=== PATIENT | female | born 1990 | race Caucasian/White ===

== ENCOUNTER → 2021-03-27 00:33 | Outpatient (CLI) | payer BC, SELFPAY ==
[2021-03-27 17:06] LABS: SARS-CoV-2 RNA PCR Negative
== END ==
PROVIDERS: Visit Provider Student in an Organized Health Care Education/Training Program
DX: Z01.812 Encounter for preprocedural laboratory examination (principal); Z20.822 Contact with and (suspected) exposure to COVID-19
CPT/HCPCS: C9803; U0003; U0005

== ENCOUNTER 2021-03-27 13:27 | Outpatient (CLI) | payer BC, SELFPAY ==
[2021-03-27 08:29] LABS: Hematocrit 40.6 % (37.0-47.0); Hemoglobin 12.9 g/dL (12.0-15.0); Mean Corpuscular HGB Conc 31.8 g/dl (32-36); Mean Corpuscular Hemoglobin 28.2 pg (26-34); Mean Corpuscular Volume 88.6 fl (80-100); Mean Platelet Volume 9.6 fl (7.4-10.4); Platelet Count Result 315 k/mm3 (150-375); Red Blood Count 4.58 M/mm3 (4.2-5.4); Red Cell Distribution Width 13.1 % (11.5-14.5); White Blood Count 7.1 K/mm3 (4.5-10.0)
== END 2021-03-27 13:28 ==
LOC: ANHSURGERY 04-24 13:28
PROVIDERS: PCP Family Medicine; Visit Provider Student in an Organized Health Care Education/Training Program
DX: R10.2 Pelvic and perineal pain (principal); Z01.818 Encounter for other preprocedural examination
CPT/HCPCS: 36415; 85027; 86850; 86900; 86901

== ENCOUNTER 2021-03-30 01:44 | Day surgery (SDC) | payer BC, SELFPAY ==
[2021-03-23 12:17] VITALS: BMI 43.6
--- NOTE | 2021-03-29 15:08 | WPDANESEPPF ---
Anes - Initial Pre Proc Eval Procedure: Operation Date: 03/30/21 14:30 Proposed Procedures p Diagnostic Laparoscopy, Hysteroscopy, Dilatation and Curettage,Chromotubation - Braulio Zhao MD Date/Time: 03/29/21 15:08 Surgeon: Braulio Zhao MD Pre Op Diagnosis: Pelvic pain Patient Data Age: 30 Gender: F Height: 1.65 m Weight: 119 kg Allergies Allergy/AdvReac Type Severity Reaction Status Date / Time adhesive tape Allergy Severe Rash Verified 03/23/21 11:45 Penicillins Allergy Unknown Unknown Verified 03/23/21 11:45 Home Medications Medication Instructions Recorded Confirmed Type alprazolam 0.5 mg PO PRN PRN 03/23/21 03/23/21 History aripiprazole 2 mg PO HS 03/23/21 03/23/21 History clonidine HCl 0.1 mg PO HS 03/23/21 03/23/21 History diclofenac sodium 50 mg PO DAILY 03/23/21 03/23/21 History montelukast 10 mg PO DAILY 03/23/21 03/23/21 History sertraline 100 mg PO HS 03/23/21 03/23/21 History tramadol 50 mg PO PRN PRN 03/23/21 03/23/21 History trazodone 100 mg PO HS 03/23/21 03/23/21 History Patient hx anesthesia problems: none Family hx anesthesia problems: none [facility] Past Medical History Medical History (Updated 03/30/21 @ 07:52 by Braulio Zhao MD) Anxiety Morbid obesity with BMI of 40.0-44.9, adult PTSD (post-traumatic stress disorder) Family History Family History (Updated 01/10/16 @ 11:11 by DOCTOR UNKNOWN) Mother Family history of mental disorder Depression Family history of bipolar disorder Hypertension Other Family history of psoriasis Social History Social History Smoking packs per day: 1 Smoking cigarettes per day: 20.0 Years smoked: 10 Smoking pack-years: 10.00 Smoking status: Former smoker Tobacco type: cigarettes Alcohol intake: never Last use: 2014 Spiritual care concerns: No Anes - Eval Final PreProcedure Day of Procedure 03/29/21 15:08 Patient weight: morbidly obese Heart: regular rate and rhythm Lungs: clear to auscultation and normal air movement Airway: Mallampati scale class II Neurological: alert and oriented Last oral intake: >/= 8 hours ASA classification: III Emergent: no Anesthetic plan: proceed Anesthesia type and monitoring: general ETT Informed Consent: The patient's anesthetic plan and its attendant risks and benefits were discussed with the patient/family/POA. Questions were solicited and answers provided to the satisfaction of the patient/family/POA.
--- NOTE | 2021-03-29 15:35 | PM.IMHP ---
H&P: HPI History of Present Illness Date/Time: 03/29/21 15:35 Chief Complaint: pelvic pain infertility Narrative: 30 yo G0 who presents for diagnostic laparoscopy, chromopertubation, hysteroscopy and D&C for pelvic pain and infertility. Pt has had chronic pelvic pain refractory to medical management. Discussed laparoscopy to evaluate for endometriosis. Pt and her partner have been trying to conceive without success. Will plan for chromopertubation at the time of laparoscopy to evaluate tubal patentcy and hysteroscopy to evaluate the endometrial cavity. Review of Systems Cardiovascular: Cardiovascular: Denies chest pain, Denies leg edema, Denies palpitations, Denies dyspnea and Denies dyspnea on exertion Respiratory: Respiratory: Denies cough, Denies dyspnea and Denies dyspnea on exertion Gastrointestinal: Gastrointestinal: Denies abdominal pain, Denies constipation, Denies diarrhea, Denies nausea and Denies vomiting Genitourinary: Genitourinary: Denies hematuria, Denies urinary frequency, Denies dysuria, Denies pelvic pain, Denies urinary incontinence and Denies vaginal discharge Neurologic: Reports system reviewed and no additional complaints, except as documented Psychiatric: Psychiatric: Reports no additional psychiatric complaints Endocrine: Endocrine: Denies palpitations [facility] Past Medical History Medical History (Updated 03/30/21 @ 07:52 by Braulio Zhao MD) Anxiety Morbid obesity with BMI of 40.0-44.9, adult PTSD (post-traumatic stress disorder) Family History Family History (Updated 01/10/16 @ 11:11 by DOCTOR UNKNOWN) Mother Family history of mental disorder Depression Family history of bipolar disorder Hypertension Other Family history of psoriasis Social History Social History Smoking packs per day: 1 Smoking cigarettes per day: 20.0 Years smoked: 10 Smoking pack-years: 10.00 Smoking status: Former smoker Tobacco type: cigarettes Alcohol intake: never Last use: 2014 Spiritual care concerns: No Meds Home Medications and Allergies Home Medications Medication Instructions Recorded Confirmed Type alprazolam 0.5 mg PO PRN PRN 03/23/21 03/23/21 History aripiprazole 2 mg PO HS 03/23/21 03/23/21 History clonidine HCl 0.1 mg PO HS 03/23/21 03/23/21 History diclofenac sodium 50 mg PO DAILY 03/23/21 03/23/21 History montelukast 10 mg PO DAILY 03/23/21 03/23/21 History sertraline 100 mg PO HS 03/23/21 03/23/21 History tramadol 50 mg PO PRN PRN 03/23/21 03/23/21 History trazodone 100 mg PO HS 03/23/21 03/23/21 History Allergies Allergy/AdvReac Type Severity Reaction Status Date / Time adhesive tape Allergy Severe Rash Verified 03/23/21 11:45 Penicillins Allergy Unknown Unknown Verified 03/23/21 11:45 Exam Const: General: no acute distress Eyes: EOM: EOMs intact bilaterally Neck: Neck: supple Thyroid: thyroid normal Chest: Breast/axilla inspection: normal inspection of the breasts Breast/axilla palpation: normal palpation of the breasts, normal palpation of the axillae and no axillary lymphadenopathy Resp: Effort & Inspection: normal respiratory effort Auscultation: clear to auscultation bilaterally Cardio: Rate: regular rate Rhythm: regular rhythm GI: Inspection: non-distended GI Palp: Yes Soft to palpation, No Tenderness to palpation present (GI) and No Guarding due to palpation present (GI) Auscultation: normal bowel sounds : General: No bladder normal to palpation External Female Exam: normal external appearance Speculum Exam - Vagina: normal vaginal discharge and No vaginal bleeding Speculum Exam - Cervix: nontender Bimanual exam- vagina & uterus: No bladder normal to palpation and No Cervical tenderness present OB/external & speculum: No vaginal bleeding Skin: General skin exam: normal color and no rashes or lesions noted Neuro: Cognition (Neuro): normal cognition Speech: normal speech Extrem: General: normal to inspection and n
[2021-03-30] VITALS (10 sets, daily range): BP systolic 105–133; BP diastolic 57–92; PULSE 72–112; RESP 14–22; TEMP 36.4–37.2; O2SAT 94–99
--- NOTE | 2021-03-30 07:54 | WPDHPUPDATE1 ---
History and Physical Update Update Date/Time: 03/30/21 07:54 History and Physical has been reviewed, including an updated exam of the patient. There are NO changes in the patient's condition. Risks, benefits, and alternatives have been discussed and questions answered. Patient agrees to proceed with procedure.
[2021-03-30] MEDS: LACTATED RINGERS 1,000 ML 30 ML IV CONT ×2 (13:05→15:48)
[2021-03-30] MEDS: KETOROLAC 15 MG/ML VIAL (*BKC) IV PUSH (13:31)
[2021-03-30] MEDS: ACETAMINOPHEN 500 MG TABLET 1000 MG PO (13:31)
[2021-03-30] MEDS: METHYLENE BLUE 0.5% INJ 10 ML AMPULE XX (15:17)
[2021-03-30] MEDS: LIDO 1%/EPINEPHRINE 1:100,000 50 ML VIAL INFILTRATE (15:18)
--- NOTE | 2021-03-30 15:43 | W.PM.PROC2 ---
Procedure Note - Detailed Date of Procedure 03/30/21 Pre-op Diagnosis Pelvic pain infertility Post-op Diagnosis same (endometriosis) Procedure Performed diagnostic laparoscopy chromopertubation hysteroscopy D&C Surgeon Braulio Zhao MD Anesthesia general Indications pelvic pain infertility Findings endometriosis on the posterior uterine serosa patent fallopian tubes bilaterally unremarkable intrauterine cavity Description of Procedure The patient was taken to the operating room where general endotracheal anesthesia was undertaken and found to be adequate. She was then prepped and draped in the dorsal lithotomy position and placed in adjustable stirrups. A pre-operative team brief and a time out were completed. A red rubber catheter was placed to drain the bladder. Sterile speculum was placed in the vagina and the cervix was identified. The anterior lip of the cervix was grasped with a single tooth tenaculum. An acorn uterine manipulator was placed. A 5 mm skin incision was made in the umbilicus. A 5 mm optical trocar was then placed with direct camera visualization of the abdominal layers during placement. The trocar stylet was removed and the camera was used to verify intra-abdominal placement. CO2 insufflation was then connected and resumed. The pelvis was inspected. The large bowel was noted to be adherent to the left pelvic side wall obstructing view of the left fallopian tube. A suprapubic 5 mm laparoscopic port was placed, in addition to a right lower quadrant 5 mm port in the standard fashion after using local anesthetic. The pelvis was inspected. The bowel adhesions were taken down from the side wall using laparoscopic monopolar scissors. The anterior cul de sac was unremarkable. Upon inspection of the posterior aspect of the uterus, a cluster of dark purple gun powder lesions were noted on the posterior serosa of the uterus at the level of the cervical isthmus. A biopsy of this lesion was taken. Due to the proximity of the uterine artery, electrocautery was spared on the lesion. Attention was then turned to the chromopertubation portion of the procedure. An life enrichment assistant pushed a diluted solution of methylene blue through the acorn cannulla. Spill was directly visualized out the fallopian tubes bilaterally. The solution was then irrigated and removed from the abdomen. The surgical field was thoroughly irrigated using normal saline. All surgical beds were noted to be hemostatic. The laparoscopic portion of the procedure was then complete. The abdomen was relieved of all CO2 gas. All remaining trocars were removed from the abdomen. Sponge, lap and needle counts were correct. All skin incisions were closed with 4-0 Vicryl suture subcuticularly. Attention was then turned to the pelvis to complete the hysteroscopic portion of the procedure. Sterile speculum was placed to visualize the cervix. The uterine manipulator was removed from the uterus. The hysteroscope was introduced and the intrauterine cavity was inspected. Both tubal ostia were identified without occlusion. The endometrial cavity was unremarkable. The hysteroscope was removed. Sharp curettage was performed. Endometrial curettings were collected on [facility] and sent for pathology. The tenaculum was removed from the cervix. Hemostasis of the cervix was noted. The patient was taken out of dorsal lithotomy position. Anesthesia was reversed. The patient was taken to the PACU. Estimated Blood Loss 50 Urine Output 25 Drains No Packing No Pathology yes (peritoneal biopsy, endometrial curettings ) Complications No immediate complications Condition stable Disposition PACU
[2021-03-30] MEDS: fentaNYL CITRATE INJ (*CRX) 100 MCG/2 ML VIAL 25 MCG IV PUSH ×8 (16:03→16:35)
[2021-03-30] MEDS: HYDROcodone/acetaminophen (*CRX) 5-325 MG TABLET 1 TAB PO (17:16)
== END 2021-03-30 17:49 | disposition home or self-care (01) ==
PROVIDERS: PCP Family Medicine; Visit Provider Student in an Organized Health Care Education/Training Program
PROC: 0UDB8ZZ Extraction of Endometrium, Via Natural or Artificial Opening Endoscopic (ICD-10-PCS; CPT 58558; principal; 2021-03-30 14:30)
PROC: 0U5B8ZZ Destruction of Endometrium, Via Natural or Artificial Opening Endoscopic (ICD-10-PCS; CPT 58563; 2021-03-30 14:30)
DX: R10.2 Pelvic and perineal pain (principal); N97.9 Female infertility, unspecified; N80.3 Endometriosis of pelvic peritoneum; N73.6 Female pelvic peritoneal adhesions (postinfective); F43.10 Post-traumatic stress disorder, unspecified; F41.9 Anxiety disorder, unspecified; E66.01 Morbid (severe) obesity due to excess calories; Z68.41 Body mass index [BMI] 40.0-44.9, adult; Z87.891 Personal history of nicotine dependence
CPT/HCPCS: 58558; 49321; 88305; A9270; J0330; J1100; J1885; J2250; J2405; J2704; J3010; J7030; J7120; Q9968

== ENCOUNTER 2021-06-11 09:07 | Emergency (ER) | payer BC, SELFPAY ==
--- NOTE | ~2021-06-11 | US_ITS ---
EXAMINATION: US OB <=14 wk fetus w TV DATE: 06/11/2021 10:42 INDICATION: Vaginal spotting TECHNIQUE: Real-time transabdominal and transvaginal obstetric ultrasound. FINDINGS: No prior studies for comparison. The uterus measures 8.6 x 6.1 x 3.4 cm. No intrauterine gestational sac or pole identified. [place] janice is retroverted. Endometrium measures 1 cm. Trace free fluid in the pelvis. Ovaries contain follic ular changes. Normal Doppler signal in both ovaries. Right ovary measures 2.9 x 2.2 x 1.8 cm. Left ov susan measures 2.7 x 1.7 x 2.1 cm. IMPRESSION: 1. Unremarkable pelvic ultrasound. No evidence for intrauterine . If there is a positive pre gnancy test, consider ectopic , very early intrauterine and failed . Bryan mmend follow-up with serial quantitative beta-hCG levels and ultrasound as clinically indicated. Reviewed, dictated and finalized at location A. IMPRESSION: 1. Unremarkable pelvic ultrasound. No evidence for intrauterine . If t here is a positive test, consider ectopic , very early intra uterine and failed . Recommend follow-up with serial quantit ative beta-hCG levels and ultrasound as clinically indicated.
[2021-06-11 09:24] VITALS: BP 142/79; PULSE 91; RESP 18; TEMP 36.6; O2SAT 96
[2021-06-11 09:48] LABS: Basophils Percent Auto 0.4 % (0.2-1.2); Eosinophils Absolute Auto 0.1 K/mm3 (0-0.3); Eosinophils Percent Auto 1.3 % (0-4.4); Hematocrit 40.7 % (37.0-47.0); Hemoglobin 13.2 g/dL (12.0-15.0); Immature Granulocyte Absolute 0.02 K/mm3 (0.00-0.031); Immature Granulocyte Percent A 0.2 % (0-0.5); Lymphocytes Absolute Auto 1.85 K/mm3 (0.9-3.2); Lymphocytes Percent Auto 22.5 % (18.3-44.2); Mean Corpuscular HGB Conc 32.4 g/dl (32-36); Mean Corpuscular Hemoglobin 28.9 pg (26-34); Mean Corpuscular Volume 89.1 fl (80-100); Mean Platelet Volume 9.1 fl (7.4-10.4); Monocytes Absolute Auto 0.5 K/mm3 (0.1-0.6); Monocytes Percent Auto 5.7 % (2.6-8.5); Neutrophils Absolute Auto 5.7 K/mm3 (1.3-6.7); Neutrophils Percent Auto 69.9 % (45.5-73.1); Platelet Count Result 350 k/mm3 (150-375); Red Blood Count 4.57 M/mm3 (4.2-5.4); Red Cell Distribution Width 13.2 % (11.5-14.5); White Blood Count 8.2 K/mm3 (4.5-10.0)
[2021-06-11 10:06] LABS: Beta HCG Quantitative 22.15 mIU/ML
[2021-06-11 10:22] LABS: Alanine Aminotransferase 32 U/L (4-35); Albumin Level 4.5 g/dL (3.5-5.1); Alkaline Phosphatase 67 U/L (38-126); Anion Gap 10 mmol/L (8-16); Aspartate Amino Transferase 32 U/L (14-36); Bilirubin,Total 0.3 mg/dL (0.2-1.3); Blood Urea Nitrogen 8 mg/dL (7-17); Calcium 9.3 mg/dL (8.4-10.2); Carbon Dioxide 21 mmol/L (22-30); Chloride 106 mmol/L (98-107); Estimated CRCL calculation 146 ml/min; Estimated Glomerular Filt Rate > 60; Glucose 112 mg/dL (65-110); Potassium 4.3 mmol/L (3.4-5.0); Sodium 137 mmol/L (137-145)
--- NOTE | 2021-06-11 11:24 | ED.FEMALEGU ---
HPI - Female Genitourinary General Chief complaint: Vaginal Bleeding Stated complaint: vag bleeding/4.5 wks preg Time Seen by Provider: 06/11/21 09:59 Source: patient History of Present Illness HPI Narrative: Patient is G1, P0 approximately 4 and half weeks by LMP used utilized Clomid to help with fertility. She presents with vaginal spotting which she noted today. She has a history of endometriosis and always has some pelvic pain she has not noted any acute change or increase or change in her chronic pain. The blood she describes very scant really only notices it when she was wiping after urination. She is not noted any other vaginal discharge or fluid discharge. She denies any nausea vomiting, dizziness, lightheadedness Related Data Home Medications Medication Instructions Recorded Confirmed alprazolam 0.5 mg PO PRN PRN 03/23/21 03/30/21 aripiprazole 2 mg PO HS 03/23/21 03/30/21 clonidine HCl 0.1 mg PO HS 03/23/21 03/30/21 diclofenac sodium 50 mg PO DAILY 03/23/21 03/30/21 montelukast 10 mg PO DAILY 03/23/21 03/30/21 sertraline 100 mg PO HS 03/23/21 03/30/21 tramadol 50 mg PO PRN PRN 03/23/21 03/30/21 trazodone 100 mg PO HS 03/23/21 03/30/21 Allergies Allergy/AdvReac Type Severity Reaction Status Date / Time adhesive tape Allergy Severe Rash Verified 03/23/21 11:45 Penicillins Allergy Unknown Unknown Verified 03/23/21 11:45 Review of Systems Review of Systems: CONSTITUTIONAL: Denies fever, chills, or sweats. EYES: Denies visual changes, redness, or discharge. ENT: Denies rhinorrhea, congestion, sore throat, or otalgia. CARDIOVASCULAR: Denies chest pain, palpitations, or edema. RESPIRATORY: Denies cough or dyspnea. GASTROINTESTINAL: Denies nausea, vomiting, or diarrhea. GENITOURINARY: Denies dysuria or hematuria. SKIN: Denies rash or itching. MUSCULOSKELETAL: Denies back pain, joint pain, or myalgia. NEUROLOGIC: Denies headache, numbness, dizziness, or weakness. PSYCHIATRIC: Denies anxiety or depression. All systems reviewed & are unremarkable except as noted in HPI and below PMFSH Past Medical History Medical History Anxiety Morbid obesity with BMI of 40.0-44.9, adult PTSD (post-traumatic stress disorder) Family History Family History Mother Family history of mental disorder Depression Family history of bipolar disorder Hypertension Other Family history of psoriasis Social History Social History Smoking packs per day: 1 Smoking cigarettes per day: 20.0 Years smoked: 10 Smoking pack-years: 10.00 Smoking status: Former smoker Tobacco type: cigarettes Alcohol intake: never Last use: 2014 Spiritual care concerns: No Exam Narrative: GENERAL: Well-appearing, well-nourished, and in no acute distress. HEAD: Normocephalic, atraumatic. EYES: PERRLA and EOMI. ENT: Nares clear, no rhinorrhea or epistaxis. Mucous membranes moist. NECK: Supple. No masses. No JVD ABDOMEN: Soft, nontender, nondistended, normal active bowel sounds. EXTREMITIES: Normal range of motion. No edema. SKIN: Warm, dry, no rash. NEURO: No focal deficits. Alert and oriented x3. PSYCH: Normal mood and affect. Course Reevaluation(s) Reevaluation #1: Patient appears nervous about her as she had a difficult time becoming and is concerned she is having a miscarriage. Results reviewed with patient. Patient already has a schedule appointment with her OB next week for repeat hCG testing. Patient is appropriate for outpatient monitoring patient is comfortable outpatient plan. Date: 06/11/21 Time: 11:26 Vital Signs Vital signs: Vital Signs Temperature 36.6 C 06/11/21 09:24 Pulse Rate 91 06/11/21 09:24 Respiratory Rate 18 06/11/21 09:24 Blood Pressure 142/79 H 06/11/21 09:24 Pulse Oximetry 96 06/11/21 09:24 Temper
== END 2021-06-11 12:19 | disposition home or self-care (01) ==
PROVIDERS: Emergency Provider Emergency Medicine; PCP Family Medicine
DX: O20.9 Hemorrhage in early pregnancy, unspecified (principal); Z87.891 Personal history of nicotine dependence; Z3A.01 Less than 8 weeks gestation of pregnancy
CPT/HCPCS: 36415; 76801; 76817; 80053; 84702; 85025; 85461; 99284

== ENCOUNTER 2021-08-24 08:22 | Observation (INO) | payer BC, SELFPAY ==
[2021-08-24 08:50] VITALS: BP 122/69; PULSE 73; RESP 18; TEMP 36.6; BMI 43.6
--- NOTE | 2021-08-24 08:50 | OBADM ---
This patient, Emily Norris, admitted to the OB room 115 AT 0822 for observation for c/o nausea and headache. Patient/family oriented to hospital policies and general routines including ID bracelet, bed and alarms, visiting hours, pain management, procedures, bathroom and other care routines, personal items, smoking policy, room service/diet, and visiting hours. Patient/Family are encouraged to report perceived risks to care and to ask questions if they do not understand what they are told or what they should do.
--- NOTE | 2021-08-24 09:00 | PC.NURSE ---
Unsuccessful IV attempt x's 1. Called for U/S guided IV placement.
[2021-08-24 09:11] LABS: Add Urine Microscopic? NO; Appearance Urine Clear (Clear); Bilirubin Urine Negative (Negative); Blood Urine Negative (Negative); Color Urine Straw (Yellow); Glucose Urine UA Negative (Negative); Ketones Urine Negative (Negative); Leukocyte Esterase Ur Negative LEU/UL (Negative); Nitrate Urine Negative (Negative); Protein Urine Negative (Negative); Specific Grav Ur 1.006 (1.001-1.035); Urobilinogen Urine Negative mg/dL (<2.0)
[2021-08-24] MEDS: PROMETHAZINE HCL 25 MG/ML AMPUL 12.5 MG IV PUSH (10:17)
[2021-08-24] MEDS: THIAMINE HCL INJ 100 MG, FOLIC ACID INJ 1 MG, MULTIVITAMINS-12 INJ VIAL 1 5 ML, MULTIVI... 500 MG IV CONT (10:19)
--- NOTE | 2021-08-24 10:20 | PC.NURSE ---
Pt given a popcicle.
--- NOTE | 2021-08-24 10:28 | PC.NURSE ---
Pt has tolerated a popcicle. Diet order entered for pt to order food. Ice chips given.
--- NOTE | 2021-08-24 12:20 | PC.NURSE ---
Pt waiting on her tray of food. Puneet crackers given.
--- NOTE | 2021-08-24 14:02 | PC.NURSE ---
Dr. Zhao returned page and informed of UA results, pt has had 60 % of a regular diet tray and been able to keep liquids down. Nausea is intermittent. Headache went away for awhile but has returned. Orders for discharge received.
--- NOTE | 2021-08-24 14:30 | PC.NURSE ---
Dr. Zhao informed of elevated liver enzymes that pt showed me from her My Chart account that were done on 08/18/21. MD will make note in chart for follow up. Still OK to discharge to home.
--- NOTE | 2021-08-30 11:22 | PM.OBTRLD ---
OB - Triage/Final Diagnosis Visit Information Date of evaluation: 08/24/21 Reason for evaluation: other (hyperemesis) Comments/Additional reasons for admission: I have assessed the risk for this patient, Emily Burt Albertlucila, and determined that she would benefit from observation care. Evaluation Laboratory results: Laboratory Tests 08/24/21 08:51 Urine Color Straw Urine Appearance Clear Urine pH 6.0 Ur Specific [place] 1.006 Urine Protein Negative Urine Glucose (UA) Negative Urine Ketones Negative Ur Blood (Man) Negative Urine Nitrate Negative Urine Bilirubin Negative Urine Urobilinogen Negative Leukocyte Esterase Rfl Negative
== END 2021-08-24 14:34 | disposition home or self-care (01) ==
PROVIDERS: Admitting Provider Obstetrics & Gynecology; PCP Family Medicine; Visit Provider Student in an Organized Health Care Education/Training Program
DX: O21.9 Vomiting of pregnancy, unspecified (principal); Z3A.00 Weeks of gestation of pregnancy not specified
CPT/HCPCS: 81003; 96365; 96366; 96375; G0378; G0379; J2550; J3411; J3475; J7121

== ENCOUNTER 2022-01-16 16:11 | Observation (INO) | payer OTHER, SELFPAY ==
--- NOTE | 2022-01-16 16:38 | ECG_ITS ---
Measurements Intervals [place] Rate: 96 P: 34 CO: 130 QRS: -10 QRSD: 92 T: 18 QT: 338 QTc: 427 Interpretive Statements SINUS RHYTHM NORMAL ECG Electronically Signed On 01-16-2022 17:24:17 CDT by Stanton Arndt D.O.
[2022-01-16 16:41] VITALS: BP 124/65; PULSE 98
[2022-01-16 16:57] LABS: Hematocrit 31.8 % (37.0-47.0); Hemoglobin 10.3 g/dL (12.0-15.0); Mean Corpuscular HGB Conc 32.4 g/dl (32-36); Mean Corpuscular Hemoglobin 27.2 pg (26-34); Mean Corpuscular Volume 84.1 fl (80-100); Mean Platelet Volume 8.7 fl (7.4-10.4); Platelet Count Result 300 k/mm3 (150-375); Red Blood Count 3.78 M/mm3 (4.2-5.4); Red Cell Distribution Width 13.5 % (11.5-14.5); White Blood Count 10.4 K/mm3 (4.5-10.0)
[2022-01-16 17:00] VITALS: BP 120/74; PULSE 98
[2022-01-16 17:01] VITALS: BMI 43.6
--- NOTE | 2022-01-16 17:01 | OBADM ---
This patient, Emily Norris, admitted to the OB room OB Post 117 for observation. Patient/family oriented to hospital policies and general routines including ID bracelet, bed and alarms, visiting hours, pain management, procedures, bathroom and other care routines, personal items, smoking policy, room service/diet, and visiting hours. Patient/Family are encouraged to report perceived risks to care and to ask questions if they do not understand what they are told or what they should do.
[2022-01-16 17:06] LABS: Alanine Aminotransferase 24 U/L (6-35); Albumin Level 3.6 g/dL (3.5-5.1); Alkaline Phosphatase 125 U/L (38-126); Anion Gap 9 mmol/L (8-16); Aspartate Amino Transferase 25 U/L (14-36); Bilirubin,Total < 0.1 mg/dL (0.2-1.3); Blood Urea Nitrogen 7 mg/dL (7-17); Calcium 8.9 mg/dL (8.4-10.2); Carbon Dioxide 21 mmol/L (22-30); Chloride 104 mmol/L (98-107); Estimated Glomerular Filt Rate > 60; Glucose 134 mg/dL (65-110); Potassium 3.5 mmol/L (3.4-5.0); Sodium 134 mmol/L (137-145)
[2022-01-16 17:15] VITALS: BP 123/67; PULSE 97
[2022-01-16 17:30] VITALS: BP 124/69; PULSE 97
--- NOTE | 2022-01-17 11:58 | PM.OBTRLD ---
OB - Triage/Final Diagnosis Visit Information Comments/Additional reasons for admission: I have assessed the risk for this patient, Emily Nroris, and determined that she would benefit from observation care. Evaluation Laboratory results: Laboratory Tests 01/16/22 01/16/22 16:44 16:44 WBC 10.4 H RBC 3.78 L Hgb 10.3 L Hct 31.8 L MCV 84.1 MCH 27.2 MCHC 32.4 RDW 13.5 Plt Count 300 MPV 8.7 Sodium 134 L Potassium 3.5 Chloride 104 Carbon Dioxide 21 L Anion Gap 9 BUN 7 Creatinine 0.40 L Estim Creat Clear Calc Not Reportable Estimated GFR > 60 Glucose 134 H Calcium 8.9 Total Bilirubin < 0.1 L AST 25 ALT 24 Alkaline Phosphatase 125 Total Protein 7.0 Albumin 3.6 Vital signs: Vital Signs - 24 hr 01/16/22 16:41 01/16/22 17:00 01/16/22 17:15 Pulse Rate 98 98 97 Blood Pressure 124/65 120/74 123/67 01/16/22 17:30 Pulse Rate 97 Blood Pressure 124/69 Comments: near syncope
--- NOTE | 2022-01-17 12:18 | PM.IMHP ---
[facility] Past Medical History Medical History Anxiety Morbid obesity with BMI of 40.0-44.9, adult PTSD (post-traumatic stress disorder) Family History Family History Mother Family history of mental disorder Depression Family history of bipolar disorder Hypertension Other Family history of psoriasis Social History Social History Smoking packs per day: 1 Smoking cigarettes per day: 20.0 Years smoked: 10 Smoking pack-years: 10.00 Smoking status: Former smoker Tobacco type: cigarettes Alcohol intake: never Last use: 2014 Spiritual care concerns: No Meds Home Medications and Allergies Home Medications Medication Instructions Recorded Confirmed Type aripiprazole 2 mg tablet 2 mg PO HS 03/23/21 01/16/22 History clonidine HCl 0.1 mg tablet 0.2 mg PO HS 03/23/21 01/16/22 History diclofenac sodium 50 mg 100 mg PO DAILY 03/23/21 01/16/22 History tablet,delayed release montelukast 10 mg tablet 10 mg PO DAILY 03/23/21 01/16/22 History sertraline 100 mg tablet 200 mg PO HS 03/23/21 01/16/22 History trazodone 100 mg tablet 200 mg PO HS 03/23/21 01/16/22 History acetaminophen 500 mg tablet 1,000 mg PO Q6H PRN pain 08/24/21 01/16/22 History promethazine 12.5 mg tablet 12.5 mg PO Q6H PRN Nausea #30 tabs 08/24/21 01/16/22 Rx Allergies Allergy/AdvReac Type Severity Reaction Status Date / Time adhesive tape Allergy Severe Rash Verified 03/23/21 11:45 Penicillins Allergy Unknown Unknown Verified 03/23/21 11:45 Vital Signs Vital Signs - 24 hr 01/16/22 16:41 01/16/22 17:00 01/16/22 17:15 Pulse Rate 98 98 97 Blood Pressure 124/65 120/74 123/67 01/16/22 17:30 Pulse Rate 97 Blood Pressure 124/69 Exam Narrative: Physical tube was the performed today. She has had then undertaken. She appears to be obese Burt female oxygen cannula present. Ultrasound was reviewed which showed enlarged uterus and thickened endometrium. H&P: Results Labs Labs: Short CBC 01/16/22 Range/Units 16:44 WBC 10.4 H (4.5-10.0) K/mm3 Hgb 10.3 L (12.0-15.0) g/dL Hct 31.8 L (37.0-47.0) % Plt Count 300 (150-375) k/mm3 BMP 01/16/22 16:44 Sodium 134 L Potassium 3.5 Chloride 104 Carbon Dioxide 21 L BUN 7 Creatinine 0.40 L Glucose 134 H Calcium 8.9 Liver Function 01/16/22 Range/Units 16:44 Total Bilirubin < 0.1 L (0.2-1.3) mg/dL AST 25 (14-36) U/L ALT 24 (6-35) U/L Alkaline Phosphatase 125 (38-126) U/L Albumin 3.6 (3.5-5.1) g/dL Assessment and Plan Assessment and plan (1) Morbid obesity with BMI of 40.0-44.9, adult: Code(s): E66.01 - Morbid (severe) obesity due to excess calories; Z68.41 - Body mass index [BMI] 40.0-44.9, adult Status: Acute (2) Enlarged uterus: Code(s): N85.2 - Hypertrophy of uterus Status: Acute Plan Impression: Severe anemia of unknown origin with an enlarged uterus and thickened endometrium making this highly suspicious for the cause of the anemia Additional Plan plan: The weight for her to be surgically stable to undergo hysteroscopy and dilatation curettage as well as possible ablation.
--- NOTE | 2022-01-23 13:18 | PM.OBTRLD ---
OB - Triage/Final Diagnosis Visit Information Comments/Additional reasons for admission: I have assessed the risk for this patient, Emily Norris, and determined that she would benefit from observation care. Evaluation Laboratory results: Laboratory Tests 01/16/22 01/16/22 16:44 16:44 WBC 10.4 H RBC 3.78 L Hgb 10.3 L Hct 31.8 L MCV 84.1 MCH 27.2 MCHC 32.4 RDW 13.5 Plt Count 300 MPV 8.7 Sodium 134 L Potassium 3.5 Chloride 104 Carbon Dioxide 21 L Anion Gap 9 BUN 7 Creatinine 0.40 L Estim Creat Clear Calc Not Reportable Estimated GFR > 60 Glucose 134 H Calcium 8.9 Total Bilirubin < 0.1 L AST 25 ALT 24 Alkaline Phosphatase 125 Total Protein 7.0 Albumin 3.6
--- NOTE | 2022-01-25 11:58 | PM.OBTRLD ---
OB - Triage/Final Diagnosis Visit Information Comments/Additional reasons for admission: I have assessed the risk for this patient, Emily Norris, and determined that she would benefit from observation care. Evaluation Laboratory results: Laboratory Tests 01/16/22 01/16/22 16:44 16:44 WBC 10.4 H RBC 3.78 L Hgb 10.3 L Hct 31.8 L MCV 84.1 MCH 27.2 MCHC 32.4 RDW 13.5 Plt Count 300 MPV 8.7 Sodium 134 L Potassium 3.5 Chloride 104 Carbon Dioxide 21 L Anion Gap 9 BUN 7 Creatinine 0.40 L Estim Creat Clear Calc Not Reportable Estimated GFR > 60 Glucose 134 H Calcium 8.9 Total Bilirubin < 0.1 L AST 25 ALT 24 Alkaline Phosphatase 125 Total Protein 7.0 Albumin 3.6 Final Diagnosis (1) Near syncope: Code(s): R55 - Syncope and collapse Status: Acute (2) Morbid obesity with BMI of 40.0-44.9, adult: Code(s): E66.01 - Morbid (severe) obesity due to excess calories; Z68.41 - Body mass index [BMI] 40.0-44.9, adult Status: Acute
== END 2022-01-16 17:43 | disposition home or self-care (01) ==
PROVIDERS: Admitting Provider Obstetrics & Gynecology; PCP Family Medicine; Visit Provider Obstetrics & Gynecology
DX: R55 Syncope and collapse (principal); D64.9 Anemia, unspecified; N85.2 Hypertrophy of uterus; E66.01 Morbid (severe) obesity due to excess calories; Z68.41 Body mass index [BMI] 40.0-44.9, adult
CPT/HCPCS: 36415; 80053; 85027; 93005; G0378; G0379

== ENCOUNTER 2022-02-12 06:29 | Outpatient (CLI) | payer OTHER, SELFPAY ==
--- NOTE | ~2022-02-12 | US_ITS ---
EXAMINATION: US venous doppler [facility] DATE: 02/12/2022 07:25 INDICATION: Left lower limb pain and swelling. Third trimester of . TECHNIQUE: Grayscale ultrasound images without and with compression and Doppler ultrasound images of the left lower extremity veins were obtained. COMPARISON: None. FINDINGS: The visualized portions of left common femoral vein, profunda (deep) femoral vein, femoral vein, popl iteal vein, peroneal veins, posterior tibial veins, and greater saphenous vein outflow are patent. IMPRESSION: 1. No deep venous thrombosis. Reviewed, dictated and finalized at location A.
[2022-02-12 07:00] VITALS: BP 119/67; PULSE 90
[2022-02-12 07:08] LABS: Basophils Percent Auto 0.2 % (0.2-1.2); Eosinophils Absolute Auto 0.2 K/mm3 (0-0.3); Eosinophils Percent Auto 1.9 % (0-4.4); Hematocrit 30.5 % (37.0-47.0); Hemoglobin 9.8 g/dL (12.0-15.0); Immature Granulocyte Absolute 0.07 K/mm3 (0.00-0.031); Immature Granulocyte Percent A 0.8 % (0-0.5); Lymphocytes Percent Auto 15.8 % (18.3-44.2); Mean Corpuscular HGB Conc 32.1 g/dl (32-36); Mean Corpuscular Hemoglobin 27.5 pg (26-34); Mean Corpuscular Volume 85.4 fl (80-100); Mean Platelet Volume 8.8 fl (7.4-10.4); Monocytes Absolute Auto 0.6 K/mm3 (0.1-0.6); Monocytes Percent Auto 6.2 % (2.6-8.5); Neutrophils Absolute Auto 6.7 K/mm3 (1.3-6.7); Neutrophils Percent Auto 75.1 % (45.5-73.1); Platelet Count Result 288 k/mm3 (150-375); Red Blood Count 3.57 M/mm3 (4.2-5.4); Red Cell Distribution Width 14.2 % (11.5-14.5); White Blood Count 8.9 K/mm3 (4.5-10.0)
--- NOTE | 2022-02-12 07:08 | PM.OBTRLD ---
OB - Triage/Final Diagnosis Visit Information Reason for evaluation: other ( edema / pain in lower limb a) Comments/Additional reasons for admission: I have assessed the risk for this patient, Emily Burt Albertlucila, and determined that she would benefit from observation care. Evaluation Vital signs: Vital Signs - 24 hr 02/12/22 07:00 Pulse Rate 90 Blood Pressure 119/67
[2022-02-12 07:09] LABS: Appearance Urine Clear (Clear); Bilirubin Urine Negative (Negative); Color Urine Yellow (Yellow); Glucose Urine UA Negative (Negative); Ketones Urine Negative (Negative); Leukocyte Esterase Ur 2+ LEU/UL (NEGATIVE); Nitrate Urine Negative (Negative); Protein Urine Negative (Negative); Specific Grav Ur 1.015 (1.001-1.035); Urobilinogen Urine 0.2 mg/dL (<2.0)
[2022-02-12 07:13] LABS: Add Urine Microscopic? YES; Blood Urine Trace-Intact (Negative)
[2022-02-12 07:14] LABS: Total Protein Urine Random 8 mg/dL; Ur Ttl Prot Creatinine Ratio 0.15 mg/mg (0-0.20)
[2022-02-12 07:22] LABS: Alanine Aminotransferase 16 U/L (6-35); Albumin Level 3.3 g/dL (3.5-5.1); Alkaline Phosphatase 113 U/L (38-126); Anion Gap 3 mmol/L (8-16); Aspartate Amino Transferase 18 U/L (14-36); Bilirubin,Total < 0.1 mg/dL (0.2-1.3); Blood Urea Nitrogen 3 mg/dL (7-17); Calcium 8.2 mg/dL (8.4-10.2); Carbon Dioxide 23 mmol/L (22-30); Chloride 108 mmol/L (98-107); Estimated Glomerular Filt Rate > 60; Glucose 114 mg/dL (65-110); Potassium 3.7 mmol/L (3.4-5.0); Sodium 134 mmol/L (137-145); Uric Acid 3.6 mg/dL (2.5-7.5)
[2022-02-12 07:25] VITALS: BMI 45.5
[2022-02-12 07:25] LABS: Bacteria Urine 2+ /hpf; Mucus Urine Rare /lpf; Squamous Epithelial Cell Urine Many /hpf (Few); WBC Urine 16-20 /hpf (0-3)
[2022-02-12 07:26] VITALS: BMI 45.5
[2022-02-12 07:41] VITALS: BP 116/64; PULSE 89
[2022-02-12 07:45] VITALS: BP 117/72; PULSE 89
[2022-02-12 08:00] VITALS: BP 117/69; PULSE 87
[2022-02-12 08:15] VITALS: BP 113/71; PULSE 86
== END 2022-02-12 08:38 | disposition home or self-care (01) ==
LOC: ANHOBOP 06:33 → ANHOBPP 06:34
PROVIDERS: Visit Provider Obstetrics & Gynecology
DX: O13.9 Gestational [pregnancy-induced] hypertension without significant proteinuria, unspecified trimester (principal); M79.669 Pain in unspecified lower leg; Z3A.00 Weeks of gestation of pregnancy not specified
CPT/HCPCS: 36415; 59025; 80053; 81001; 82570; 84156; 84550; 85025; 87086; 87088; 93971; 99199

== ENCOUNTER 2022-03-09 13:51 | Observation (INO) | payer OTHER, SELFPAY ==
[2022-03-09 14:10] VITALS: BMI 45.3
[2022-03-09 14:16] VITALS: BP 119/62; PULSE 77
[2022-03-09 14:31] VITALS: BP 125/71; PULSE 74
[2022-03-09 14:46] VITALS: BP 113/68; PULSE 76
[2022-03-09 15:01] VITALS: BP 120/67; PULSE 76
--- NOTE | 2022-03-09 15:46 | OBADM ---
This patient, Emily Norris, admitted to the OB room OB Post 115 for observation. Patient/family oriented to hospital policies and general routines including ID bracelet, bed and alarms, visiting hours, pain management, procedures, bathroom and other care routines, personal items, smoking policy, room service/diet, and visiting hours. Patient/Family are encouraged to report perceived risks to care and to ask questions if they do not understand what they are told or what they should do.
--- NOTE | 2022-03-19 22:11 | PM.OBTRLD ---
OB - Triage/Final Diagnosis Visit Information Date of evaluation: 03/19/22 Reason for evaluation: threatened labor Comments/Additional reasons for admission: I have assessed the risk for this patient, Emily Burt Albertlucila, and determined that she would benefit from observation care.
== END 2022-03-09 15:30 | disposition home or self-care (01) ==
PROVIDERS: Admitting Provider Obstetrics & Gynecology; Visit Provider Obstetrics & Gynecology
DX: O47.03 False labor before 37 completed weeks of gestation, third trimester (principal); Z3A.35 35 weeks gestation of pregnancy
CPT/HCPCS: G0378; G0379

== ENCOUNTER 2022-03-14 13:33 | Outpatient (RCR) | payer OTHER, SELFPAY ==
[2022-01-24 16:28] VITALS: BP 130/56
[2022-01-30 18:21] VITALS: BP 125/72; PULSE 83
[2022-01-31 15:32] VITALS: BP 124/65; PULSE 101
[2022-02-07 17:17] VITALS: BP 116/61; PULSE 101
[2022-02-14 17:31] VITALS: BP 133/61; PULSE 81
[2022-02-21 16:34] VITALS: BP 139/65; PULSE 96
[2022-02-28 14:21] VITALS: BP 133/74; PULSE 106
[2022-03-07 16:00] VITALS: BP 135/61; PULSE 84
--- NOTE | ~2022-03-14 | US_ITS ---
EXAMINATION: US OB BPP wo non-stress DATE: 01/31/2022 15:30 CDT INDICATION: Evaluate well-being. Decreased movements. TECHNIQUE: Real-time transabdominal obstetric ultrasound. FINDINGS: 06/11/2021 There is a single living fetus in transverse left presentation. The placenta is posterior without pl acenta previa. cardiac activity and movement is noted with a heart rate of 144 beats per minute. Biophysical profile: breathin of 2 movement: 2 of 2 tone: 2 of 2 Amniotic flud pocket: 2 of 2 Total score: 8 of 8 IMPRESSION: 1. Single living intrauterine in transverse presentation. 2: Total biophysical profile score of 8/8. Reviewed, dictated and finalized at location B.
== END 2022-04-06 14:58 | disposition home or self-care (01) ==
LOC: ANHOBOP 13:33
PROVIDERS: PCP Family Medicine; Visit Provider Obstetrics & Gynecology
DX: R03.0 Elevated blood-pressure reading, without diagnosis of hypertension (principal); O26.893 Other specified pregnancy related conditions, third trimester; O36.8930 Maternal care for other specified fetal problems, third trimester, not applicable or unspecified; Q27.0 Congenital absence and hypoplasia of umbilical artery; Z3A.28 28 weeks gestation of pregnancy; O36.8130 Decreased fetal movements, third trimester, not applicable or unspecified; Z3A.29 29 weeks gestation of pregnancy; Z3A.39 39 weeks gestation of pregnancy
CPT/HCPCS: 59025; 76819

== ENCOUNTER 2022-03-15 17:12 | Observation (INO) | payer OTHER, SELFPAY ==
[2022-03-15 17:37] VITALS: BP 121/69; PULSE 85
[2022-03-15 17:40] VITALS: TEMP 36.3; BMI 44.8
--- NOTE | 2022-03-15 17:40 | OBADM ---
This patient, Emily Norris, admitted to the OB room 116 for observation. Patient/family oriented to hospital policies and general routines including ID bracelet, bed and alarms, visiting hours, pain management, procedures, bathroom and other care routines, personal items, smoking policy, room service/diet, and visiting hours. Patient/Family are encouraged to report perceived risks to care and to ask questions if they do not understand what they are told or what they should do.
[2022-03-15 17:46] VITALS: BP 123/74; PULSE 88
[2022-03-15 18:01] VITALS: BP 124/66; PULSE 81
[2022-03-15 18:16] VITALS: BP 124/75; PULSE 78
[2022-03-15 18:39] LABS: Appearance Urine Cloudy (Clear); Bilirubin Urine Negative (Negative); Color Urine Yellow (Yellow); Glucose Urine UA Negative (Negative); Ketones Urine 1+ mg/dL (Negative); Leukocyte Esterase Ur 2+ LEU/UL (Negative); Nitrate Urine Negative (Negative); Protein Urine Trace mg/dL (Negative); Specific Grav Ur 1.015 (1.001-1.035); Urobilinogen Urine 0.2 mg/dL (<2.0)
[2022-03-15 18:44] LABS: Amorphous Sediment Urine Few; Bacteria Urine 2+ /hpf; Mucus Urine Rare /lpf; Squamous Epithelial Cell Urine Many /hpf (Few); WBC Urine 31-50 /hpf
[2022-03-15 18:46] LABS: Add Urine Microscopic? YES; Blood Urine Trace-Intact (Negative)
[2022-03-15 18:53] VITALS: BP 127/73; PULSE 70
[2022-03-15] MEDS: LACTATED RINGERS 1,000 ML 999 ML IV CONT (19:45)
--- NOTE | 2022-03-19 22:10 | P.PNOB_ITS ---
OB - Triage/Final Diagnosis Visit Information Date of evaluation: 03/19/22 Reason for evaluation: threatened labor Comments/Additional reasons for admission: I have assessed the risk for this patient, Emily Norris, and determined that she would benefit from observation care. Evaluation Laboratory results: Laboratory Tests 03/15/22 18:16 Urine Color Yellow Urine Appearance Cloudy H Urine pH 7.[address] [place] [address] [place] 1.015 Urine Protein Trace Urine Glucose (UA) Negative Urine Ketones 1+ H Ur Blood (Man) Trace-intact Urine Nitrate Negative Urine Bilirubin Negative Urine Urobilinogen 0.2 Leukocyte Esterase Rfl 2+ H Urine RBC 6-10 H Urine WBC 31-50 H Ur Squamous Epith Cells Many H Amorphous Sediment Few H Urine Bacteria 2+ H Urine Mucus Rare
== END 2022-03-15 21:00 | disposition home or self-care (01) ==
PROVIDERS: Student in an Organized Health Care Education/Training Program; Admitting Provider Obstetrics & Gynecology; Visit Provider Obstetrics & Gynecology
DX: O47.03 False labor before 37 completed weeks of gestation, third trimester (principal); Z3A.36 36 weeks gestation of pregnancy
CPT/HCPCS: 81001; 87086; G0378; G0379; J7120

== ENCOUNTER 2022-03-28 15:56 | Outpatient (RCR) | payer OTHER, SELFPAY ==
[2022-03-14 15:17] VITALS: BP 129/71; PULSE 86
[2022-03-21 16:17] VITALS: BP 120/65; PULSE 85
[2022-03-28 16:43] VITALS: BP 136/62; PULSE 94
== END 2022-05-23 10:05 | disposition home or self-care (01) ==
LOC: ANHOBOP 15:56
PROVIDERS: Visit Provider Obstetrics & Gynecology
DX: O36.8990 Maternal care for other specified fetal problems, unspecified trimester, not applicable or unspecified (principal); Z3A.35 35 weeks gestation of pregnancy
CPT/HCPCS: 59025

== ENCOUNTER 2022-04-04 18:40 | Inpatient (IN) | payer OTHER, SELFPAY ==
[2022-04-04] VITALS (9 sets, daily range): BP systolic 132–154; BP diastolic 71–84; PULSE 78–90; RESP 16; TEMP 36.4; BMI 43.4
--- NOTE | 2022-04-04 19:59 | LDADM ---
This patient, Emily Norris, was admitted to Labor/Delivery/Recovery 108 on 04/04/22 at 18:40. Plans for labor, pain management and were discussed with patient. Patient/family oriented to hospital policies and general routines including ID bracelet, bed and alarms, visiting hours, pain management, procedures, bathroom and other care routines, personal items, smoking policy, room service/diet and guest tray routines, infant security routines, and visiting hours. Patient/Family are encouraged to report perceived risks to care and to ask questions if they do not understand what they are told or what they should do. See OBIX for further documentation.
[2022-04-04 20:20] LABS: Basophils Percent Auto 0.3 % (0.2-1.2); Eosinophils Absolute Auto 0.1 K/mm3 (0-0.3); Eosinophils Percent Auto 0.8 % (0-4.4); Hematocrit 33.7 % (37.0-47.0); Hemoglobin 10.6 g/dL (12.0-15.0); Immature Granulocyte Absolute 0.03 K/mm3 (0.00-0.031); Immature Granulocyte Percent A 0.3 % (0-0.5); Immature Platelet Fraction Pct 3.9 % (0.9-11.2); Lymphocytes Absolute Auto 1.57 K/mm3 (0.9-3.2); Lymphocytes Percent Auto 15.7 % (18.3-44.2); Mean Corpuscular HGB Conc 31.5 g/dl (32-36); Mean Corpuscular Hemoglobin 26.5 pg (26-34); Mean Corpuscular Volume 84.3 fl (80-100); Mean Platelet Volume 9.8 fl (7.4-10.4); Monocytes Absolute Auto 0.5 K/mm3 (0.1-0.6); Monocytes Percent Auto 4.8 % (2.6-8.5); Neutrophils Absolute Auto 7.8 K/mm3 (1.3-6.7); Neutrophils Percent Auto 78.1 % (45.5-73.1); Platelet Count Result 323 k/mm3 (150-375); Red Cell Distribution Width 14.3 % (11.5-14.5)
[2022-04-04] MEDS: DINOPROSTONE 10 MG VAG INSERT VAGINAL (20:24)
[2022-04-04 20:29] LABS: Uric Acid 4.2 mg/dL (2.5-7.5)
[2022-04-04 20:31] LABS: Alanine Aminotransferase 23 U/L (6-35); Albumin Level 3.6 g/dL (3.5-5.1); Alkaline Phosphatase 181 U/L (38-126); Anion Gap 8 mmol/L (8-16); Aspartate Amino Transferase 22 U/L (14-36); Bilirubin,Total 0.2 mg/dL (0.2-1.3); Blood Urea Nitrogen 9 mg/dL (7-17); Calcium 9.2 mg/dL (8.4-10.2); Carbon Dioxide 25 mmol/L (22-30); Chloride 99 mmol/L (98-107); Estimated CRCL calculation 168 ml/min; Estimated Glomerular Filt Rate > 60; Glucose 118 mg/dL (65-110); Potassium 3.7 mmol/L (3.4-5.0); Sodium 132 mmol/L (137-145)
[2022-04-04 20:57] LABS: Ovalocytes 1+ (NORMAL); Platelet Estimate Adequate (Adequate)
[2022-04-04] MEDS: ZOLPIDEM TARTRATE (*CRX) 5 MG TABLET PO (22:43)
[2022-04-05] VITALS (63 sets, daily range): BP systolic 111–148; BP diastolic 54–85; PULSE 82–116; RESP 14–20; TEMP 36.3–37; O2SAT 92–100
[2022-04-05] MEDS: fentaNYL CITRATE INJ (*CRX) 100 MCG/2 ML VIAL 50 MCG IV PUSH (01:28)
[2022-04-05] MEDS: LACTATED RINGERS 1,000 ML 125 ML IV CONT (02:09)
[2022-04-05] MEDS: TERBUTALINE SULFATE 1 MG/ML VIAL 0.25 MG SUB-Q (04:05)
[2022-04-05] MEDS: KETOROLAC 30 MG/ML VIAL (*BKC) IV PUSH (04:32)
--- NOTE | 2022-04-05 05:01 | PM.IMHP ---
H&P: HPI History of Present Illness Date/Time: 04/05/22 05:01 Chief Complaint: Induction of labor at term Narrative: this is a 31-year-old 2 para 0 last menstrual period was 07/06/2021, EDC is 04/12/2022, confirmed by very early ultrasound admitted for induction of labor secondary to history of 2 vessel cord. She has had reassuring testing. Cervix is a dimple. Risks and benefits of induction reviewed [facility] Past Medical History Medical History Anxiety Morbid obesity with BMI of 40.0-44.9, adult PTSD (post-traumatic stress disorder) Family History Family History Mother Depression Family history of mental disorder Hypertension Sibling Family history of psoriasis Grandparent S/P CABG x 2 Grandparent Breast cancer in female Cervical cancer Grandparent Cancer Grandparent Alzheimer disease Father Hypertension Social History Social History Smoking packs per day: 1 Smoking cigarettes per day: 20.0 Years smoked: 10 Smoking pack-years: 10.00 Smoking status: Former smoker Tobacco type: cigarettes Alcohol intake: never Substance use: never Last use: 2014 Spiritual care concerns: No Meds Home Medications and Allergies Home Medications Medication Instructions Recorded Confirmed Type aripiprazole 2 mg tablet 2 mg PO HS 03/23/21 03/15/22 History clonidine HCl 0.1 mg tablet 0.2 mg PO HS 03/23/21 03/15/22 History montelukast 10 mg tablet 10 mg PO DAILY 03/23/21 03/15/22 History sertraline 100 mg tablet 200 mg PO HS 03/23/21 03/15/22 History trazodone 100 mg tablet 200 mg PO HS 03/23/21 03/15/22 History acetaminophen 500 mg tablet 1,000 mg PO Q6H PRN pain 08/24/21 03/15/22 History promethazine 12.5 mg tablet 12.5 mg PO Q6H PRN Nausea #30 tabs 08/24/21 03/15/22 Rx prenat.vits,karyn,[id number] 1 tablet PO DAILY 02/12/22 03/15/22 History Allergies Allergy/AdvReac Type Severity Reaction Status Date / Time adhesive tape Allergy Severe Rash Verified 03/23/21 11:45 Penicillins Allergy Unknown Verified 03/15/22 18:40 Vital Signs Vital Signs - 24 hr 04/04/22 19:29 04/04/22 20:31 04/04/22 20:46 Temperature Pulse Rate 90 83 80 Respiratory Rate Blood Pressure 138/74 135/84 133/72 Pulse Oximetry Oxygen Delivery 04/04/22 21:01 04/04/22 21:16 04/04/22 21:31 Temperature Pulse Rate 80 84 85 Respiratory Rate Blood Pressure 133/71 135/73 132/73 Pulse Oximetry Oxygen Delivery 04/04/22 21:46 04/04/22 22:01 04/04/22 22:16 Temperature 97.5 F L Pulse Rate 85 82 78 Respiratory Rate 16 Blood Pressure 142/80 H 153/83 H 154/79 H Pulse Oximetry Oxygen Delivery 04/05/22 03:05 04/05/22 03:59 04/05/22 04:04 Temperature Pulse Rate 83 Respiratory Rate Blood Pressure 111/54 L Pulse Oximetry 99 100 Oxygen Delivery 04/05/22 04:09 04/04/22 19:59 Temperature Pulse Rate Respiratory Rate Blood Pressure Pulse Oximetry 100 Oxygen Delivery Room Air Exam Const: General: cooperative and healthy appearing Nutritional Appearance: overweight Orientation/consciousness: oriented to person, oriented to place and oriented to time HENMT: Head: normal to inspection Eyes: General: appearance normal, both eyes and all related structures Chest: Chest palpation & inspection: normal inspection of the chest Resp: Effort & Inspection: normal respiratory effort Cardio: Rate: regular rate Rhythm: regular rhythm GI: Inspection: normal to inspection and obesity GI Palp: Yes Other GI palpation findings present ( gravid soft uterus palpable) : External Female Exam: normal external appearance Speculum Exam - Vagina: normal appearance of the vagina Speculum Exam - Cervix: normal appearance of the cervix Bimanual exam- vagina & uterus: e
--- NOTE | 2022-04-05 05:04 | P.OP_ITS ---
Procedure Note - Detailed Date of Procedure 04/05/22 Pre-op Diagnosis IOL Post-op Diagnosis Other ( Two vessel cord. intolerance to labor) Procedure Performed emergent primary low-transverse section Surgeon Harrison Suazo MD Anesthesia General Indications / 31-year-old 2 para 0 with a 2 vessel cord who was induced at term. She has multiple medical problems but has had reassuring testing. Upon admission heart tones reassuring. Then initially heart tones dropped and the Cervidil was removed. Contractions did not appear to be strong. She was given a dose of terbutaline and attempts at resuscitation failed. Immediate section was called. Upon my entering the hospital and the operating room the patient was prepped and draped in the normal sterile fashion placed in the supine position. General anesthetic was given and immediate low-transverse section was performed. Skin was entered in a Pfannenstiel fashion progressive layers to the fascia. Fascia was incised in midline carried in upward outward fashion bilaterally. Underlying muscles sharply dissected parietal peritoneum L by Rachel clamps. This was carried superiorly and inferiorly down the bladder. Bladder blade was placed bladder flap was formed. Bladder blade returned a low transverse incision made. The head delivered in the SHANIKA position anterior posterior shoulder delivered spontaneously cord clamped x2 and cut and immediately passed off the table. Placenta was delivered manually uterus delivered on the abdomen wrapped in a moist towel. After assuring no membranes or debris remained in the uterus, the uterus was closed with continuous running 0 Vicryl from lateral edge to lateral edge followed by a 2nd imbricating running locking 0 Vicryl from lateral edge to lateral edge. Hemostasis was assured. The ovaries and tubes appeared within normal limits. And the uterus then began to clamp down. The uterus returned to the abdomen and the incision inspected 1 last time after clots and debris removed abdomen. Fascia was closed with continuous running 0 Vicryl from lateral edge to midline bilaterally after assuring that all laps were accounted for. The fat the fascia closed with continuous running 0 Vicryl from lateral edge to midline bilaterally. Skin closed with 4 Monocryl and glue. Blood loss was 735 by QBL. All sponge, needle, instrument counts were correct. Mom and baby were doing well this time. Should be noted that the computer hardware engineer was present throughout the procedure. Findings Female . Very small 2 vessel cord. Normal-appearing ovaries and tubes Description of Procedure please see the indications. Estimated Blood Loss 735 Drains No Packing No Pathology Yes ( Placenta) Complications No immediate complications Condition Stable Disposition Floor
[2022-04-05] MEDS: HYDROmorphone HCL INJ (*CRX) 1 MG/ML SYR 0.5 MG IV PUSH ×4 (05:26→06:33)
--- NOTE | 2022-04-05 05:30 | WPDANESEPP ---
Anes - Eval Pre Procedure Procedure: Operation Date: 04/05/22 04:30 Proposed Procedures p Section - Harrison Suazo MD Date/Time: 04/05/22 05:30 Preop Diagnosis: intolerance to labor Pre Op Diagnosis: IOL Patient Data Age: 31 Gender: F Height: 1.63 m Weight: 115 kg Last Vital Signs Temp 36.4 C L 04/04/22 22:16 Pulse 101 H 04/05/22 05:16 Resp 16 04/04/22 22:16 BP 148/85 H 04/05/22 05:16 Pulse Ox 99 04/05/22 05:28 O2 Del Method Room Air 04/04/22 19:59 Allergies Allergy/AdvReac Type Severity Reaction Status Date / Time adhesive tape Allergy Severe Rash Verified 03/23/21 11:45 Penicillins Allergy Unknown Verified 03/15/22 18:40 Home Medications Medication Instructions Recorded Confirmed Type aripiprazole 2 mg tablet 2 mg PO HS 03/23/21 03/15/22 History clonidine HCl 0.1 mg tablet 0.2 mg PO HS 03/23/21 03/15/22 History montelukast 10 mg tablet 10 mg PO DAILY 03/23/21 03/15/22 History sertraline 100 mg tablet 200 mg PO HS 03/23/21 03/15/22 History trazodone 100 mg tablet 200 mg PO HS 03/23/21 03/15/22 History acetaminophen 500 mg tablet 1,000 mg PO Q6H PRN pain 08/24/21 03/15/22 History promethazine 12.5 mg tablet 12.5 mg PO Q6H PRN Nausea #30 tabs 08/24/21 03/15/22 Rx prenat.vits,karyn,cig-[id number] 1 tablet PO DAILY 02/12/22 03/15/22 History hydrocodone 5 mg-acetaminophen 325 1 tablet PO Q4H PRN pain #30 tabs 04/05/22 Rx mg tablet Laboratory Tests 04/04/22 04/04/22 04/04/22 19:29 19:29 19:29 WBC 10.0 K/mm3 K/mm3 (4.5-10.0) RBC 4.00 M/mm3 L M/mm3 (4.2-5.4) Hgb 10.6 g/dL L g/dL (12.0-15.0) Hct 33.7 % L % (37.0-47.0) MCV 84.3 fl fl (80-100) MCH 26.5 pg pg (26-34) MCHC 31.5 g/dl L g/dl (32-36) RDW 14.3 % % (11.5-14.5) Plt Count 323 k/mm3 k/mm3 (150-375) MPV 9.8 fl fl (7.4-10.4) Immature Gran % (Auto) 0.3 % % (0-0.5) Neut % (Auto) 78.1 % H % (45.5-73.1) Lymph % (Auto) 15.7 % L % (18.3-44.2) [place] % (Auto) 4.8 % % (2.6-8.5) Eos % (Auto) 0.8 % % (0-4.4) Baso % (Auto) 0.3 % % (0.2-1.2) Lymph # (Auto) 1.57 K/mm3 K/mm3 (0.9-3.2) [place] # (Auto) 0.5 K/mm3 K/mm3 (0.1-0.6) Eos # (Auto) 0.1 K/mm3 K/mm3 (0-0.3) Baso # (Auto) 0.0 K/mm3 K/mm3 (0.0-0.1) Abs Immat Gran (auto) 0.03 K/mm3 K/mm3 (0.00-0.031) Absolute Neuts (auto) 7.8 K/mm3 H K/mm3 (1.3-6.7) Absolute Nucleated RBC 0.0 K/mm3 K/mm3 (0.0-0.012) Nucleated RBC % 0.0 % % (0.0-0.2) Platelet Estimate Adequate (Adequate) % Immature Plt Fraction 3.9 % % (0.9-11.2) Ovalocytes 1+ (NORMAL) Sodium Potassium Chloride Carbon Dioxide Anion Gap BUN Creatinine Estim Creat Clear Calc Estimated GFR Glucose Uric Acid 4.2 mg/dL mg/dL (2.5-7.5) Calcium Total Bilirubin AST ALT Alkaline Phosphatase Total Protein Albumin RPR Pending Blood Type Antibody Screen 04/04/22 04/04/22 19:29 19:29 WBC RBC Hgb Hct MCV MCH MCHC RDW Plt Count MPV Immature Gran % (Auto) Neut % (Auto) Lymph % (Auto) [place] % (Auto) Eos % (Auto) Baso % (Auto) Lymph # (Auto) [place] # (Auto) Eos # (Auto) Baso # (Auto) Abs Immat Gran (auto) Absolute Neuts (auto) Absolute Nucleated RBC Nucleated RBC % Platelet Estimate % Immature Plt Fraction Ovalocytes
[2022-04-05 05:59] LABS: Rapid Plasma Reagin Non-Reactive (NonReactive)
--- NOTE | 2022-04-05 06:20 | SUR.PHASEI ---
Call to pharmacy to request SLOT ATTENDANT, states they are working on it. Awaiting its arrival.
[2022-04-05] MEDS: OXYTOCIN 30 UNITS/NS 500 ML 30 UNITS/500 ML BAG 125 UNITS IV CONT (06:34)
[2022-04-05] MEDS: FENTANYL 600MCG/NS30MLPCA(*CRX 600 MCG/30 ML PCA.VIAL IV CONT (06:51)
--- NOTE | 2022-04-05 07:40 | SUR.PHASEI ---
Pt taken to nursery via stretcher to see baby. FOB with pt. Awaiting return call from pp nurse to give report.
--- NOTE | 2022-04-05 07:55 | SUR.PHASEI ---
Report called to Camryn HERNANDEZ. Recovery completed and will move pt up to 286 for pp care once pt is done visiting with .
--- NOTE | 2022-04-05 08:20 | SUR.PHASEI ---
Pt taken to room 286 via stretcher at this time. Chart and belongings with pt. Infant remains in nursery.
--- NOTE | 2022-04-05 08:25 | OBPPTRN ---
Patient transferred to post room # 286 via stretcher. Support person present. Oriented to unit, room, information board, rooming in, admission packet and security measures. Patient verbalizes understanding.
[2022-04-05] MEDS: DEXTROSE 5%/0.45% SOD CHL 1,000 ML 125 ML IV CONT (10:09)
[2022-04-05] MEDS: IBUPROFEN 600 MG TABLET PO ×2 (13:07→18:41)
[2022-04-05] MEDS: HYDROcodone/acetaminophen (*CRX) 5-325 MG TABLET 1 TAB PO ×3 (13:10→18:41)
[2022-04-05] MEDS: DOCUSATE SODIUM 100 MG CAPSULE PO (17:54)
[2022-04-05] MEDS: HYDROcodone/acetaminophen (*CRX) 10-325 MG TABLET 1 TAB PO (23:28)
[2022-04-06] MEDS: HYDROcodone/acetaminophen (*CRX) 5-325 MG TABLET 1 TAB PO ×3 (04:29→23:53)
[2022-04-06] MEDS: SIMETHICONE 80 MG TAB.CHEW PO ×3 (04:29→23:55)
[2022-04-06] MEDS: IBUPROFEN 600 MG TABLET PO ×3 (04:29→20:04)
[2022-04-06 04:30] VITALS: BP 120/68; PULSE 80; RESP 18; TEMP 36.8
[2022-04-06 05:14] LABS: Basophils Percent Auto 0.5 % (0.2-1.2); Eosinophils Absolute Auto 0.1 K/mm3 (0-0.3); Eosinophils Percent Auto 1.4 % (0-4.4); Hematocrit 27.7 % (37.0-47.0); Hemoglobin 8.9 g/dL (12.0-15.0); Immature Granulocyte Absolute 0.04 K/mm3 (0.00-0.031); Immature Granulocyte Percent A 0.5 % (0-0.5); Lymphocytes Percent Auto 17.7 % (18.3-44.2); Mean Corpuscular HGB Conc 32.1 g/dl (32-36); Mean Corpuscular Hemoglobin 27.4 pg (26-34); Mean Corpuscular Volume 85.2 fl (80-100); Mean Platelet Volume 9.3 fl (7.4-10.4); Monocytes Absolute Auto 0.5 K/mm3 (0.1-0.6); Neutrophils Absolute Auto 6.3 K/mm3 (1.3-6.7); Neutrophils Percent Auto 73.9 % (45.5-73.1); Platelet Count Result 275 k/mm3 (150-375); Red Blood Count 3.25 M/mm3 (4.2-5.4); Red Cell Distribution Width 14.3 % (11.5-14.5); White Blood Count 8.5 K/mm3 (4.5-10.0)
--- NOTE | 2022-04-06 06:50 | PM.OBPNVD ---
OB - PN: Subj Subjective Date/time seen: 04/06/22 06:50 Patient comments: no complaints and pain well controlled baby status: doing well OB - PN: Obj Data Labs CBC & Chem 7: 04/06/22 04:35 04/04/22 19:29 Labs: Laboratory Results - last 24 hr 04/06/22 04:35 WBC 8.5 RBC 3.25 L Hgb 8.9 L Hct 27.7 L MCV 85.2 MCH 27.4 MCHC 32.1 RDW 14.3 Plt Count 275 MPV 9.3 Immature Gran % (Auto) 0.5 Neut % (Auto) 73.9 H Lymph % (Auto) 17.7 L [place] % (Auto) 6.0 Eos % (Auto) 1.4 Baso % (Auto) 0.5 Lymph # (Auto) 1.50 [place] # (Auto) 0.5 Eos # (Auto) 0.1 Baso # (Auto) 0.0 Abs Immat Gran (auto) 0.04 H Absolute Neuts (auto) 6.3 Absolute Nucleated RBC 0.0 Nucleated RBC % 0.0 OB - PN A/P Plan day: 1 Plan: routine care Time Spent With Patient Time: Total time spent is greater than 50% in coordination of care (as documented) at patient's floor/unit and/or counseling patient: Time with patient: less than 15 minutes
[2022-04-06 08:10] VITALS: BP 129/70; PULSE 80; RESP 18; TEMP 36.4; O2SAT 99
[2022-04-06] MEDS: HYDROcodone/acetaminophen (*CRX) 10-325 MG TABLET 1 TAB PO ×3 (10:04→20:04)
[2022-04-06] MEDS: MULTIVIT/MIN/PREN/FOL AC/IRON TABLET 1 TAB PO (10:04)
[2022-04-06] MEDS: DOCUSATE SODIUM 100 MG CAPSULE PO ×2 (10:04→16:16)
[2022-04-06] MEDS: POLYSACCHARIDE IRON COMPLEX 150 MG CAPSULE PO ×2 (10:04→16:16)
--- NOTE | 2022-04-06 11:21 | PC.NURSE ---
[phone] Introductions were made, then consulted with patient to assess needs related to . Male in the room is feeding infant a bottle of formula. Mother led the conversation with her?working on pumping with plans to feed?her with human milk and formula. Resources provided for inpatient and outpatient services using a resource guide and mom/baby guide. Mother voiced understanding of information and will call if there is a request for assistance. Reported to primary RN.
--- NOTE | 2022-04-06 15:05 | WPDANLDPN2 ---
Anes-Prog Note L&D Date/Time: 04/06/22 15:05 Comfortable throughout: section (GETA) Neuro status: Neuro function grossly intact. Cardiovascular status: normal Respiratory status: normal Airway patency: baseline Mental status: baseline Post-Op hydration status: normal Vital Signs: Last Vital Signs Temp 36.4 C 04/06/22 08:10 Pulse 80 04/06/22 08:10 Resp 18 04/06/22 08:10 BP 129/70 04/06/22 08:10 Pulse Ox 99 04/06/22 08:10 O2 Del Method Room Air 04/05/22 18:40 O2 Flow Rate 10 04/05/22 06:10 Pain score (VAS): 09/04 I/O: Intake & Output 04/05/22 04/06/22 04/06/22 23:59 07:59 15:59 Intake Total 2700 500 Output Total 1000 Balance 1700 500 Post-procedural complaints: none Patient feedback: Patient satisfied with anesthetic care.
[2022-04-06 16:30] VITALS: BP 117/76; PULSE 85; RESP 18; TEMP 36.6; O2SAT 97
[2022-04-06 20:00] VITALS: BP 112/61; PULSE 89; RESP 18; TEMP 36.7; O2SAT 100
--- NOTE | 2022-04-07 09:00 | PC.NURSE ---
PT introductions made and plan of care discussed per post , caesarian pain management, bottle breast feeding, daily care activities. PT received such instructions per one to one discussion, mom baby care guide and demonstrations this shift. PT and spouse both recipients of such instructions and verbalized understanding. No barriers to learning identified at this time.
--- NOTE | 2022-04-07 10:12 | PM.OBPNVD ---
OB - PN: Subj Subjective Date/time seen: 04/07/22 10:12 Narrative: Pain OK. Tolerating diet. Would like to go home. OB - PN: Obj Data Labs CBC & Chem 7: 04/06/22 04:35 04/04/22 19:29 OB - PN A/P Plan day: 2 Comments: A: POD#2, doing well. P: Home to f/u 4 weeks. Time Spent With Patient Time with patient: less than 15 minutes Exam Narrative: AVSS ABD soft, nontender, fundus firm. Incision c/d/i. EXT nontender
[2022-04-07] MEDS: HYDROcodone/acetaminophen (*CRX) 5-325 MG TABLET 1 TAB PO (10:21)
[2022-04-07] MEDS: SIMETHICONE 80 MG TAB.CHEW PO ×3 (10:21→16:48)
[2022-04-07] MEDS: MULTIVIT/MIN/PREN/FOL AC/IRON TABLET 1 TAB PO (10:21)
[2022-04-07] MEDS: DOCUSATE SODIUM 100 MG CAPSULE PO ×2 (10:21→16:48)
[2022-04-07 10:23] VITALS: BP 138/81; PULSE 97; RESP 18; TEMP 37; O2SAT 100
[2022-04-07] MEDS: IBUPROFEN 600 MG TABLET PO ×2 (10:23→16:49)
[2022-04-07] MEDS: POLYSACCHARIDE IRON COMPLEX 150 MG CAPSULE PO ×2 (10:23→16:50)
[2022-04-07] MEDS: HYDROcodone/acetaminophen (*CRX) 10-325 MG TABLET 1 TAB PO ×2 (13:11→16:48)
--- NOTE | 2022-04-07 18:44 | PC.NURSE ---
Discharge instructions reviewed with patient. Patient verbalized understanding. All questions answered. Patient left unit with infant, partner and this RN, ambulatory to car waiting outside of the [facility].
[2022-04-09 09:30] VITALS: BP 132/85; PULSE 89; RESP 20; TEMP 36.8; O2SAT 98
--- NOTE | 2022-05-07 11:51 | PM.OBDSVD ---
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 Status: Acute (2) Term : Code(s): Z34.90 - Encounter for supervision of normal , unspecified, unspecified trimester Status: Acute (3) delivery delivered: Code(s): O82 - Encounter for delivery without indication Status: Acute OB - DS: Summary OB Procedures : NST OB Procedures Intrapartum: OB Procedures: : None Peripartum Data Procedures: Procedures Operation Date: 04/05/22 04:30 Actual Procedure Side Surgeon p Section Harrison Suazo MD Time Spent with Patient Time attestation: Total time spent providing and/or coordinating discharge services: DS: Data Data Completed and Pending Completed studies during hospitalization: Pending at discharge 04/05/22 04:34 Surgical [PTH] Routine Discharge Plan Discharge Attending physician on discharge: Harrison Mcpherson Consulting providers: Yakelin Burk ; Joy Palumbo Discharging Clinician: Harrison Mcpherson Patient Disposition: Home, Self-Care Activity: may shower, no straining, may drive after 2 weeks and pelvic rest Diet: heart healthy Wound Care Instructions: follow printed instructions Discharge Instructions: Education: Mom and Baby Guide Given to: Mother Follow-Up: Call your delivering provider's office for an appointment to be seen in: 1 Week Mom and baby should come to the [facility] for the follow-up appointment. Appointment Date/Time: April 09, 2022 at 9:00 am What to expect at your follow-up visit: Blood Pressure Check Call [phone] if you are unable to keep your appointment time. BREAST CARE: * Wear a snug supportive bra. * For engorgement discomfort: Breast Feeding: * Apply warm moist washcloths * Express milk as needed to relieve engorgement * Wear loose clothing Bottle Feeding: * May apply ice packs * For sore nipples: * Identify correct latch-on * Apply warm moist washcloths before and after nursing * Air dry nipples after nursing * May apply Lansinoh cream to nipples ABDOMINAL INCISION: (if applicable) * Allow incision to air dry * Do NOT use lotions for powders on your incision * When showering, allow soap and water to run over the incision, but do not wash incision PERINEAL CARE: * Until bleeding stops, use your harjeet bottle after urinating * Change your pad frequently throughout the day * No tub baths until seen by your physician - You may shower ACTIVITY: * Rest as much as possible. * Do not exercise or lift anything heavier than your baby (such as laundry or other children.) * Avoid stairs or driving as much as possible. * Do not put anything into the vagina. No douching, tampons, or sexual activity until seen by physician. NOTIFY PHYSICIAN IF YOU HAVE ANY QUESTIONS OR IF ANY OF THE FOLLOWING SYMPTOMS OCCUR: * If your incision becomes red, swollen, or more painful than what you have experienced in the hospital. * If your vaginal bleeding becomes foul smelling. * If your vaginal bleeding becomes more heavy than a period or if your bleeding changes from pink to bright red. However, you may pass an occasional walnut-sized clot once or twice for the first week . * If you experience a sharp, shooting pain in you calves. * If you discover a hard, reddened area on your breast or if you experience flu-like symptoms. * If you have a fever of 100.4 or greater DIET: * Eat regular, well-balanced meals. * Drink plenty of fluids daily. If , drink to thirst.Call or return if temperature above
== END 2022-04-07 18:44 | disposition home or self-care (01) | DRG 788 ==
LOC: ANHLDR 04-05 05:11 → ANHOB2 04-07 10:14 → ANHLDR 04-09 11:54
PROVIDERS: Admitting Provider Obstetrics & Gynecology; Visit Provider Obstetrics & Gynecology
PROC: 10D00Z1 Extraction of Products of Conception, Low, Open Approach (ICD-10-PCS; CPT 59514; principal; 2022-04-05 04:30)
DX: O76 Abnormality in fetal heart rate and rhythm complicating labor and delivery (principal); O69.89X0 Labor and delivery complicated by other cord complications, not applicable or unspecified; O99.344 Other mental disorders complicating childbirth; F41.9 Anxiety disorder, unspecified; O13.4 Gestational [pregnancy-induced] hypertension without significant proteinuria, complicating childbirth; O99.214 Obesity complicating childbirth; E66.01 Morbid (severe) obesity due to excess calories; Z3A.39 39 weeks gestation of pregnancy; Z37.0 Single live birth; Z87.891 Personal history of nicotine dependence
CPT/HCPCS: 36415; 80053; 84550; 85025; 85055; 86592; 86850; 86900; 86901; 88307; A9270; J0131; J0330; J1170; J1885; J2210; J2250; J2405; J2590; J2704; J3010; J3105; J7120

== ENCOUNTER 2023-02-24 10:49 | Emergency (ER) | payer OTHER, SELFPAY ==
[2023-02-24 11:01] VITALS: BP 125/90; PULSE 82; RESP 16; TEMP 36.6; O2SAT 99
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
== END 2023-02-24 11:36 | disposition home or self-care (01) ==
PROVIDERS: Emergency Provider Registered Nurse
DX: L98.9 Disorder of the skin and subcutaneous tissue, unspecified (principal); Z87.891 Personal history of nicotine dependence; N80.9 Endometriosis, unspecified; E66.01 Morbid (severe) obesity due to excess calories; Z68.41 Body mass index [BMI] 40.0-44.9, adult; L40.9 Psoriasis, unspecified
CPT/HCPCS: 99213; G0463

== ENCOUNTER 2023-05-27 08:17 | Emergency (ER) | payer OTHER, SELFPAY ==
[2023-05-27 08:30] VITALS: BP 120/68; PULSE 90; RESP 16; TEMP 37.2; O2SAT 100
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
== END 2023-05-27 09:12 | disposition home or self-care (01) ==
PROVIDERS: Emergency Provider Registered Nurse
DX: H10.32 Unspecified acute conjunctivitis, left eye (principal); Z87.891 Personal history of nicotine dependence
CPT/HCPCS: 99213; G0463

== ENCOUNTER 2024-04-06 12:22 | Observation (INO) | payer OTHER, SELFPAY ==
--- NOTE | ~2024-04-06 | US_ITS ---
EXAMINATION: US OB limited DATE: 04/06/2024 13:59 INDICATION: Left upper abdominal pain. Estimated gestational age of 23 weeks and 6 days. TECHNIQUE: Real-time ultrasound of the pelvis was performed. COMPARISON: None. FINDINGS: There is a single fetus in transverse lie. The placenta is posterior and fundal. heart rate is 155 beats per minute (bpm). The amniotic fluid volume is subjectively normal. The deepest vertical p ocket is 7.8 cm, which is normal. IMPRESSION: 1. Single living fetus in transverse lie. Reviewed, dictated and finalized at location A.
--- NOTE | 2024-04-06 12:22 | OBADM ---
This patient, Emily Wiley, admitted to the OB room OB Post 115 for observation. Patient/family oriented to hospital policies and general routines including ID bracelet, bed and alarms, visiting hours, pain management, procedures, bathroom and other care routines, personal items, smoking policy, room service/diet, and visiting hours. Patient/Family are encouraged to report perceived risks to care and to ask questions if they do not understand what they are told or what they should do.
[2024-04-06 12:55] VITALS: BP 108/58; PULSE 84
[2024-04-06 13:00] VITALS: BP 109/59; PULSE 84
[2024-04-06 13:30] LABS: Basophils Percent Auto 0.4 % (0.2-1.2); Eosinophils Absolute Auto 0.1 K/mm3 (0-0.3); Eosinophils Percent Auto 0.7 % (0-4.4); Hematocrit 34.1 % (37.0-47.0); Hemoglobin 11.3 g/dL (12.0-15.0); Immature Granulocyte Absolute 0.04 K/mm3 (0.00-0.031); Immature Granulocyte Percent A 0.5 % (0-0.5); Lymphocytes Absolute Auto 1.51 K/mm3 (0.9-3.2); Lymphocytes Percent Auto 17.8 % (18.3-44.2); Mean Corpuscular HGB Conc 33.1 g/dl (32-36); Mean Corpuscular Volume 84.4 fl (80-100); Monocytes Absolute Auto 0.4 K/mm3 (0.1-0.6); Monocytes Percent Auto 4.7 % (2.6-8.5); Neutrophils Absolute Auto 6.5 K/mm3 (1.3-6.7); Neutrophils Percent Auto 75.9 % (45.5-73.1); Platelet Count Result 220 k/mm3 (150-375); Red Blood Count 4.04 M/mm3 (4.2-5.4); Red Cell Distribution Width 14.7 % (11.5-14.5); White Blood Count 8.5 K/mm3 (4.5-10.0)
[2024-04-06 13:36] LABS: Add Urine Microscopic? YES; Appearance Urine Cloudy (Clear); Bacteria Urine Rare /hpf; Bilirubin Urine Negative (Negative); Blood Urine Negative (Negative); Color Urine Yellow (Yellow); Glucose Urine UA Negative (Negative); Ketones Urine 1+ mg/dL (Negative); Leukocyte Esterase Ur 1+ LEU/UL (Negative); Nitrate Urine Negative (Negative); Non Pathogenic Casts 0-2; Protein Urine 1+ mg/dL (Negative); RBC Urine 0-2 /hpf (0-2); Specific Grav Ur 1.024 (1.001-1.035); Squamous Epithelial Cell Urine Few /hpf (Few); pH Urine 5.5 (5.0-9.0)
[2024-04-06 13:41] VITALS: BMI 43.6
[2024-04-06 13:55] VITALS: BP 108/58; PULSE 82
--- NOTE | 2024-04-06 14:17 | PC.NURSE ---
Dr. Pedro Luis Suazo updated with labs and ultrasound. MD aware. Discharge order received.
--- NOTE | 2024-04-08 07:05 | PM.OBTRLD ---
OB - Triage/Final Diagnosis Visit Information Date of evaluation: 04/07/24 Reason for evaluation: threatened labor Comments/Additional reasons for admission: I have assessed the risk for this patient, Emily Wiley, and determined that she would benefit from observation care. Evaluation Laboratory results: Laboratory Tests 04/06/24 13:05 WBC 8.5 RBC 4.04 L Hgb 11.3 L Hct 34.1 L MCV 84.4 MCH 28.0 MCHC 33.1 RDW 14.7 H Plt Count 220 MPV 9.0 Immature Gran % (Auto) 0.5 Neut % (Auto) 75.9 H Lymph % (Auto) 17.8 L [place] % (Auto) 4.7 Eos % (Auto) 0.7 Baso % (Auto) 0.4 Lymph # (Auto) 1.51 [place] # (Auto) 0.4 Eos # (Auto) 0.1 Baso # (Auto) 0.0 Abs Immat Gran (auto) 0.04 H Absolute Neuts (auto) 6.5 Absolute Nucleated RBC 0.000 Nucleated RBC % 0.0 Urine Color Yellow Urine Appearance Cloudy H Urine pH 5.5 Ur Specific [place] 1.024 Urine Protein 1+ H Urine Glucose (UA) Negative Urine Ketones 1+ H Ur Blood (Man) Negative Urine Nitrate Negative Urine Bilirubin Negative Urine Urobilinogen 1.0 Leukocyte Esterase Rfl 1+ H Urine RBC 0-2 Urine WBC 6-10 H Ur Squamous Epith Cells Few Urine Bacteria Rare Urine Casts 0-2
== END 2024-04-06 14:38 | disposition home or self-care (01) ==
PROVIDERS: Admitting Provider Obstetrics & Gynecology; Visit Provider Obstetrics & Gynecology
DX: O47.02 False labor before 37 completed weeks of gestation, second trimester (principal); Z3A.23 23 weeks gestation of pregnancy
CPT/HCPCS: 36415; 59025; 76815; 81001; 85025; 87086; 87088; G0378; G0379

== ENCOUNTER 2024-07-10 17:55 | Observation (INO) | payer OTHER, SELFPAY ==
[2024-07-10 20:47] VITALS: BMI 43.2
--- NOTE | 2024-07-10 20:47 | OBADM ---
This patient, Emily Wiley, admitted to the OB room Labor/Delivery/Recovery 120 for observation. Patient/family oriented to hospital policies and general routines including ID bracelet, bed and alarms, visiting hours, pain management, procedures, bathroom and other care routines, personal items, smoking policy, room service/diet, and visiting hours. Patient/Family are encouraged to report perceived risks to care and to ask questions if they do not understand what they are told or what they should do.
--- NOTE | 2024-07-10 21:02 | PC.NURSE ---
Pt discharged home undelivered in stable condition per order from Dr. Patiño. Discharge orders reviewed with pt, pt stated understanding, all questions and concerns answered. Pt ambulated out of department with all belongings.
--- NOTE | 2024-07-16 20:29 | PM.OBTRLD ---
OB - Triage/Final Diagnosis Visit Information Comments/Additional reasons for admission: I have assessed the risk for this patient, Emily Wiley, and determined that she would benefit from observation care. Final Diagnosis (1) False labor: Code(s): O47.9 - False labor, unspecified Status: Acute
== END 2024-07-10 21:02 | disposition home or self-care (01) ==
PROVIDERS: Admitting Provider Obstetrics & Gynecology; Visit Provider Obstetrics & Gynecology
DX: O47.1 False labor at or after 37 completed weeks of gestation (principal); Z3A.37 37 weeks gestation of pregnancy
CPT/HCPCS: 99199; G0378; G0379

== ENCOUNTER 2024-07-16 14:15 | Outpatient (RCR) | payer OTHER, SELFPAY ==
[2024-06-15 15:30] VITALS: BP 117/65; PULSE 86
[2024-06-18 16:15] VITALS: BP 113/59; PULSE 85
[2024-06-25 14:42] VITALS: BP 126/68; PULSE 101
[2024-07-02 14:47] VITALS: BP 132/75; PULSE 85
[2024-07-09 16:25] VITALS: BP 115/60; PULSE 78
--- NOTE | ~2024-07-16 | US_ITS ---
EXAMINATION: US OB BPP wo non-stress DATE: 06/18/2024 16:17 CDT INDICATION: Decreased movements TECHNIQUE: Real-time transabdominal obstetric ultrasound. FINDINGS: Comparison to ultrasound dated 06/15/2024 There is a single living fetus in vertex presentation. The placenta is fundal without placenta previ a. cardiac activity and movement is noted with a heart rate of 141 beats per minute. Biophysical profile: breathin of 2 movement: 2 of 2 tone: 2 of 2 Amniotic flud pocket: 2 of 2 Total score: 8 of 8 IMPRESSION: 1. Single living intrauterine in vertex presentation. 2: Total biophysical profile score of 8/8. Reviewed, dictated and finalized at location B.
--- NOTE | ~2024-07-16 | US_ITS ---
EXAMINATION: US OB limited w BPP DATE: 07/09/2024 16:37 INDICATION: Variable decelerations. Decreased movement. TECHNIQUE: Real-time pelvic ultrasound was performed. COMPARISON: Ultrasound 06/18/2024 FINDINGS: There is a single living fetus in vertex presentation. The placenta is fundal. heart rate is 1 45 beats per minute (bpm). The amniotic fluid index is 15.3 cm, which is normal. Biophysical profile performed by the technologist: breathing (30 sec sustained breathing in 30 minutes): 2 out of 2 movement (3 gross body movements in 30 minutes): 2 out of 2 tone (one episode of mfvmyyd-fxkifzpbl-efgaxia limb movement): 2 out of 2 Amniotic fluid pocket (2 cm): 2 out of 2 Total score: 8 out of 8 IMPRESSION: 1. Single living fetus in vertex presentation. 2. Biophysical profile 8 out of 8. Reviewed, dictated and finalized at location A. [employer]
--- NOTE | ~2024-07-16 | US_ITS ---
EXAMINATION: US OB limited w BPP DATE: 06/15/2024 15:38 INDICATION: Decreased movements. Assess amniotic fluid index and biophysical profile. TECHNIQUE: Real-time pelvic ultrasound was performed. The interpreting radiologist was not present fo r the study. COMPARISON: None. FINDINGS: There is a single living fetus in each presentation. The placenta is posterior fundal. heart r ate is 134 beats per minute (bpm). Amniotic fluid index of 13.3 cm which is normal (5th%-95%: 8.3-24. 5 cm at 33 weeks estimated gestational age) Biophysical profile performed by the technologist: breathing (30 sec sustained breathing in 30 minutes): 2 out of 2 movement (3 gross body movements in 30 minutes): 0 out of 2 tone (one episode of fwezlkq-oanuuvrjt-doniufh limb movement): 2 out of 2 Amniotic fluid pocket (2 cm): 2 out of 2 Total score: 6 out of 8 IMPRESSION: 1. Single living fetus in breech presentation with heart rate of 134 bpm. 2. Biophysical profile 6 out of 8. No points given for 3 movements over the course of 30 minut es of observation. Reviewed, dictated and finalized at location A. IMPRESSION: 1. Single living fetus in breech presentation with heart rate of 134 bpm. 2. Biophysical profile 6 out of 8. No points given for 3 movements over the course of 30 minutes of observation.
[2024-07-16 15:14] VITALS: BP 123/62; PULSE 79
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
== END 2024-07-22 17:47 | disposition home or self-care (01) ==
LOC: ANHOBOP 14:15
PROVIDERS: Visit Provider Obstetrics & Gynecology
DX: O36.8190 Decreased fetal movements, unspecified trimester, not applicable or unspecified (principal)
CPT/HCPCS: 59025; 76815; 76819

== ENCOUNTER 2024-07-21 14:26 | Outpatient (CLI) | payer OTHER, SELFPAY ==
[2024-07-21 14:56] LABS: Basophils Percent Auto 0.2 % (0.2-1.2); Eosinophils Absolute Auto 0.1 K/mm3 (0-0.3); Eosinophils Percent Auto 0.9 % (0-4.4); Hematocrit 35.3 % (37.0-47.0); Hemoglobin 11.8 g/dL (12.0-15.0); Immature Granulocyte Absolute 0.04 K/mm3 (0.00-0.031); Immature Granulocyte Percent A 0.5 % (0-0.5); Lymphocytes Absolute Auto 1.96 K/mm3 (0.9-3.2); Lymphocytes Percent Auto 23.1 % (18.3-44.2); Mean Corpuscular HGB Conc 33.4 g/dl (32-36); Mean Corpuscular Volume 83.8 fl (80-100); Mean Platelet Volume 9.6 fl (7.4-10.4); Monocytes Absolute Auto 0.4 K/mm3 (0.1-0.6); Monocytes Percent Auto 4.8 % (2.6-8.5); Neutrophils Percent Auto 70.5 % (45.5-73.1); Platelet Count Result 297 k/mm3 (150-375); Red Blood Count 4.21 M/mm3 (4.2-5.4); Red Cell Distribution Width 13.7 % (11.5-14.5); White Blood Count 8.5 K/mm3 (4.5-10.0)
[2024-07-21 15:51] LABS: HIV 1/2 Ab P24 Ag Result Negative (Negative)
--- NOTE | 2024-07-22 00:42 | WPDHPUPDATE1 ---
History and Physical Update Update Date/Time: 07/22/24 00:42 History and Physical has been reviewed, including an updated exam of the patient. There are NO changes in the patient's condition. Risks, benefits, and alternatives have been discussed and questions answered. Patient agrees to proceed with procedure.
[2024-07-22 08:24] LABS: Rapid Plasma Reagin Non-Reactive (NonReactive)
== END 2024-07-21 14:27 | disposition home or self-care (01) ==
LOC: ANHLAB 14:30
PROVIDERS: Visit Provider Obstetrics & Gynecology
DX: Z34.93 Encounter for supervision of normal pregnancy, unspecified, third trimester (principal); Z98.891 History of uterine scar from previous surgery; Z3A.00 Weeks of gestation of pregnancy not specified
CPT/HCPCS: 36415; 85025; 86592; 86703; 86850; 86900; 86901; G0432

== ENCOUNTER 2024-07-22 05:25 | Inpatient (IN) | payer OTHER, SELFPAY ==
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
[2024-07-22] VITALS (68 sets, daily range): BP systolic 71–130; BP diastolic 46–72; PULSE 56–86; RESP 13–20; TEMP 35.9–36.6; O2SAT 96–100; BMI 43.6; BMI 43.2
--- NOTE | 2024-07-22 00:42 | HP_ITS ---
This report was moved to the correct visit on 07/29/2024. The original report was signed by Harrison Mcpherson on 07/22/2441. History and Physical Update Update Date/Time: 07/22/24 00:42 History and Physical has been reviewed, including an updated exam of the patient. There are NO changes in the patient's condition. Risks, benefits, and alternatives have been discussed and questions answered. Patient agrees to proceed with procedure. This report may have been done utilizing a voice recognition system. Attempts have been made to correct errors. However, there may be uncorrected grammatical, spelling, and recognition errors present. Report Initialized date/time: Harrison Mcpherson MD 07/22/2441 Electronically signed by: Harrison Mcpherson MD 07/22/2441 [facility]
[2024-07-22] MEDS: ACETAMINOPHEN 500 MG TABLET 1000 MG PO (05:57)
[2024-07-22] MEDS: LACTATED RINGERS 1,000 ML 999 ML IV CONT ×2 (05:58→06:46)
--- NOTE | 2024-07-22 06:09 | LDADM ---
This patient, Emily Wiley, was admitted to Labor/Delivery/Recovery 120 on 07/22/24 at 05:25. Plans for labor, pain management and were discussed with patient. Patient/family oriented to hospital policies and general routines including ID bracelet, bed and alarms, visiting hours, pain management, procedures, bathroom and other care routines, personal items, smoking policy, room service/diet and guest tray routines, security routines, and visiting hours. Patient/Family are encouraged to report perceived risks to care and to ask questions if they do not understand what they are told or what they should do. See [facility] for further documentation.
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
[2024-07-22] MEDS: ONDANSETRON INJ 4 MG/2 ML VIAL IV PUSH (07:08)
[2024-07-22] MEDS: FAMOTIDINE 20 MG/2 ML VIAL IV PUSH (07:10)
[2024-07-22] MEDS: ceFAZolin 2 GM/D5W 50 ML 2 GM/50 ML BAG IVPB (07:27)
--- NOTE | 2024-07-22 08:10 | W.PM.OBCSD ---
OB - Delivery Note Procedure Delivery date: 07/22/24 Pre-op diagnosis: Previous Delivery Post-op Diagnosis: Same Induction method: None Delivery monitor: External FHT Prior to decision for section, [facility] labor guidelines were considered and discussed with the patient and staff. Decision made to proceed with the section.: Yes Procedure Performed: Repeat Surgeon: Harrison Suazo MD Anesthesia type: Spinal Description of Procedure/Findings: The patient was prepped draped in the normal sterile fashion placed in the dorsal supine signed the supine position. That was entered in Pfannenstiel fashion progressive layers the fascia. Fascia incised midline carried number dilation bilaterally underlying muscles sharply dissected. Parietal peritoneum entered by Rachel clamps. Peritoneum entered by sharp dissection carried superiorly and inferiorly the dome of the bladder. Bladder blade placed. Bladder flap formed. Bladder blade returned. A low-transverse incision made head delivered in the SHANIKA position. Nuchal cord checked noted be loose x1 relieved around the occiput. Anterior posterior shoulder delivered spontaneously. Cord clamped x2 infant passed off the table excellent cry. Placenta delivered intact manually uterus delivered on the abdomen wrapped in moist towel. After assuring no membranes or debris remained in the uterus, the uterus was closed with continuous running locking 0 Vicryl from lateral edge to lateral edge. This was followed by 2nd imbricating running locking 0 Vicryl from lateral edge to lateral edge. Hemostasis was assured ovaries and tubes appeared within normal limits and hemostasis on the hysterotomy incision was noted. The uterus returned to the abdomen. The raw surface area was irrigated with Kopperl term. Hemostasis was assured laps removed and accounted for. The fascia closed with continuous running 0 Vicryl from lateral edge to lateral edge. Irrigation subcutaneous layer the skin closed with 4 Monocryl and glue. Blood loss was 230cc. All sponge, needle, instrument counts were correct. There were no immediate complications Specimen: No Estimated Blood Loss: 230 Drains: No Packing: No Pathology: None sent Complications: No immediate complications Condition: Stable Disposition: Floor [place] Baby Date of : 07/22/24 Time of : 07:50 Gestational Age by Date: 39 gender: Male presentation: vertex position: Right Occiput Anterior Placenta delivery description: Manual Removal and Uterine Exploration Cord Vessel Description: 3 Vessels, Nuchal Cord, Loose and Reduced score one minute: 8 score five minutes: 9
--- NOTE | 2024-07-22 08:13 | PM.DS ---
DS: Admitting Diagnosis Discharge Date 07/24/2024 Admitting Diagnosis term /previous section DS: Discharge Diagnosis Discharge Diagnosis (1) Previous section: Code(s): Z98.891 - History of uterine scar from previous surgery Status: Acute (2) Term : Code(s): Z34.90 - Encounter for supervision of normal , unspecified, unspecified trimester Status: Acute DS: Summary Hospital Course Reason for hospitalization: patient was admitted for repeat section on 07/22/2024 the procedure was unremarkable. Hospital Course: Patient's hospital course unremarkable. She remained afebrile. She was up, voiding without difficulty, eating regular diet, ambulating, generally without complaints. Time Spent with Patient Time attestation: Total time spent providing and/or coordinating discharge services: Exam Const: General: cooperative, healthy appearing and comfortable Nutritional Appearance: overweight Orientation/consciousness: oriented to person, oriented to place and oriented to time Resp: Effort & Inspection: normal respiratory effort Cardio: Rate: regular rate Rhythm: regular rhythm Heart sounds: S1 normal heart sound present and S2 normal heart sound present GI: Inspection: normal to inspection and incision ( Clean dry and intact) Discharge Plan Discharge Attending physician on discharge: Harrison Mcpherson Discharging Clinician: Harrison Mcpherson Patient Disposition: Home, Self-Care Activity: may shower and pelvic rest Diet: heart healthy Wound Care Instructions: follow printed instructions Patient Instructions: Antibiotic Form Stand Alone Forms: General Discharge Information Follow-up/Referrals: Harrison Mcpherson MD [Physician] - Discharge Medications: Continued PNV cmb#95-ferrous fumarate-FA [] 28 mg iron- 800 mcg Tablet 1 tablet PO DAILY labetalol 100 mg tablet 100 mg PO BID Patient Comments: Pt has stopped taking lgkhjzevhe-ipqjelccrrsmc-ulzb 50-325-40 mg tablet 1 - 2 tablet PO Q6H PRN (Reason: Migraine Headache) hydrocodone-acetaminophen 5-325 mg tablet 1 tablet PO Q4H PRN (Reason: pain) Qty: 30 0RF Date of admission: 07/22/24 05:25 Primary Care Provider: PHYSICIAN,CLERICAL CAR CHECKER Admitting Provider: Harrison Mcpherson Attending physician on admission: Harrison Mcpherson Condition: Stable
[2024-07-22] MEDS: OXYTOCIN 30 UNITS/NS 500 ML 30 UNITS/500 ML BAG 125 UNITS IV CONT (08:25)
[2024-07-22] MEDS: LORATADINE 10 MG TABLET PO (09:16)
[2024-07-22] MEDS: SIMETHICONE 80 MG TAB.CHEW PO ×3 (09:52→18:22)
[2024-07-22] MEDS: LIDOCAINE 5% PATCH 1 PATCH TRANSDERM (09:57)
[2024-07-22] MEDS: MORPHINE SULFATE INJ (*CRX) 10 MG/ML AMP 2 MG IV PUSH (10:00)
[2024-07-22] MEDS: KETOROLAC 15 MG/ML VIAL (*BKC) IV PUSH ×2 (12:04→18:21)
[2024-07-22] MEDS: DOCUSATE SODIUM 100 MG CAPSULE PO ×2 (12:04→18:22)
[2024-07-22] MEDS: ACETAMINOPHEN 325 MG TABLET 650 MG PO ×2 (12:04→18:22)
[2024-07-23] MEDS: KETOROLAC 15 MG/ML VIAL (*BKC) IV PUSH ×2 (00:57→07:06)
[2024-07-23] MEDS: ACETAMINOPHEN 325 MG TABLET 650 MG PO ×4 (00:58→23:16)
[2024-07-23 04:30] VITALS: BP 101/53; PULSE 74; RESP 18; TEMP 36; O2SAT 99
[2024-07-23 05:14] LABS: Basophils Percent Auto 0.3 % (0.2-1.2); Eosinophils Absolute Auto 0.2 K/mm3 (0-0.3); Eosinophils Percent Auto 1.9 % (0-4.4); Hemoglobin 9.8 g/dL (12.0-15.0); Immature Granulocyte Absolute 0.02 K/mm3 (0.00-0.031); Immature Granulocyte Percent A 0.3 % (0-0.5); Lymphocytes Absolute Auto 1.33 K/mm3 (0.9-3.2); Lymphocytes Percent Auto 16.6 % (18.3-44.2); Mean Corpuscular HGB Conc 33.8 g/dl (32-36); Mean Corpuscular Hemoglobin 28.6 pg (26-34); Mean Corpuscular Volume 84.5 fl (80-100); Mean Platelet Volume 9.9 fl (7.4-10.4); Monocytes Absolute Auto 0.5 K/mm3 (0.1-0.6); Monocytes Percent Auto 5.6 % (2.6-8.5); Neutrophils Percent Auto 75.3 % (45.5-73.1); Platelet Count Result 200 k/mm3 (150-375); Red Blood Count 3.43 M/mm3 (4.2-5.4); Red Cell Distribution Width 14.1 % (11.5-14.5)
--- NOTE | 2024-07-23 05:47 | PM.OBPNVD ---
OB - PN: Subj Subjective Date/time seen: 07/23/24 05:47 Patient comments: no complaints and pain well controlled baby status: doing well and nursing well OB - PN: Obj Data Labs 07/23/24 04:24 Labs: Laboratory Results - last 24 hr 07/23/24 04:24 WBC 8.0 RBC 3.43 L Hgb 9.8 L Hct 29.0 L MCV 84.5 MCH 28.6 MCHC 33.8 RDW 14.1 Plt Count 200 MPV 9.9 Immature Gran % (Auto) 0.3 Neut % (Auto) 75.3 H Lymph % (Auto) 16.6 L Monroe % (Auto) 5.6 Eos % (Auto) 1.9 Baso % (Auto) 0.3 Lymph # (Auto) 1.33 Monroe # (Auto) 0.5 Eos # (Auto) 0.2 Baso # (Auto) 0.0 Abs Immat Gran (auto) 0.02 Absolute Neuts (auto) 6.0 Absolute Nucleated RBC 0.000 Nucleated RBC % 0.0 OB - PN A/P Plan day: 1 Plan: routine care Time Spent With Patient Time: Total time spent is greater than 50% in coordination of care (as documented) at patient's floor/unit and/or counseling patient: Time with patient: less than 15 minutes Exam Const: General: cooperative, healthy appearing and comfortable Orientation/consciousness: oriented to person, oriented to place and oriented to time Resp: Effort & Inspection: normal respiratory effort Cardio: Rate: regular rate Rhythm: regular rhythm Heart sounds: S1 normal heart sound present and S2 normal heart sound present GI: Inspection: normal to inspection and incision (cdi)
[2024-07-23] MEDS: SIMETHICONE 80 MG TAB.CHEW PO ×3 (07:06→17:04)
[2024-07-23] MEDS: POLYSACCHARIDE IRON COMPLEX 150 MG CAPSULE PO ×2 (07:07→17:05)
[2024-07-23] MEDS: DOCUSATE SODIUM 100 MG CAPSULE PO ×2 (07:07→17:05)
[2024-07-23] MEDS: MULTIVIT/MIN/PREN/FOL AC/IRON TABLET 1 TAB PO (07:07)
[2024-07-23 08:05] VITALS: BP 116/62; PULSE 77; RESP 16; TEMP 36.6; O2SAT 99
[2024-07-23] MEDS: HYDROcodone/acetaminophen (*CRX) 5-325 MG TABLET 1 TAB PO (09:40)
[2024-07-23] MEDS: LIDOCAINE 5% PATCH 1 PATCH TRANSDERM (09:40)
--- NOTE | 2024-07-23 09:54 | WPDANLDPN2 ---
Anes-Prog Note L&D Date/Time: 07/23/24 09:54 Comfortable throughout: section Neuraxial method: spinal Epidural/Spinal procedure site: clean & non-tender Neuro status: Neuro function grossly intact. Cardiovascular status: normal Respiratory status: normal Airway patency: baseline Mental status: baseline Post-Op hydration status: normal Vital Signs: Last Vital Signs Temp 36.6 C 07/23/24 08:05 Pulse 77 07/23/24 08:05 Resp 16 07/23/24 08:05 BP 116/62 07/23/24 08:05 Pulse Ox 99 07/23/24 08:05 O2 Del Method Room Air 07/22/24 10:20 Pain score (VAS): 4/10 I/O: Intake & Output 07/22/24 07/23/24 07/23/24 23:59 07:59 15:59 Intake Total 500 800 Output Total 400 800 Balance 100 0 Post-procedural complaints: pruritis moderate, treatment effective Patient feedback: Patient satisfied with anesthetic care.
--- NOTE | 2024-07-23 09:54 | WPDANLDNPN2 ---
Anes-Prog Note L&D-Neuraxial Date/Time: 07/23/24 09:54 Neuraxial medications: intrathecal PF morphine Opiod-related complaints: pruritis moderate, treatment effective Patient feedback: Patient satisfied with post-operative pain management.
[2024-07-23] MEDS: HYDROcodone/acetaminophen (*CRX) 10-325 MG TABLET 1 TAB PO ×2 (12:36→17:04)
[2024-07-23] MEDS: IBUPROFEN 600 MG TABLET PO ×2 (17:05→23:16)
[2024-07-23 18:50] VITALS: BP 106/59; PULSE 75; RESP 16; TEMP 36.4; O2SAT 99
[2024-07-24] MEDS: IBUPROFEN 600 MG TABLET PO ×4 (05:18→23:00)
[2024-07-24] MEDS: ACETAMINOPHEN 325 MG TABLET 650 MG PO ×4 (05:18→23:00)
--- NOTE | 2024-07-24 06:30 | P.PNOB_ITS ---
OB - PN: Subj Subjective Date/time seen: 07/24/24 06:30 Patient comments: no complaints and pain well controlled baby status: doing well OB - PN: Obj Data Labs 07/23/24 04:24 OB - PN A/P Plan day: 2 Plan: routine care, discharge home and follow up 6 weeks (4) Time Spent With Patient Time: Total time spent is greater than 50% in coordination of care (as documented) at patient's floor/unit and/or counseling patient: Time with patient: less than 15 minutes Exam Const: General: cooperative, healthy appearing and comfortable Orie ntation/consciousness: oriented to person, oriented to place and oriented to time HENMT: Head: normal to inspection Resp: Effort & Inspection: normal respiratory effort Cardio: Rate: regular rate Rhythm: regular rhythm Heart sounds: S1 normal heart sound present and S2 normal heart sound present GI: Inspection: normal to inspection and incision (cdi)
[2024-07-24 08:10] VITALS: BP 118/65; PULSE 69; RESP 16; TEMP 36.5; O2SAT 99
[2024-07-24] MEDS: SIMETHICONE 80 MG TAB.CHEW PO ×3 (08:20→17:03)
[2024-07-24] MEDS: POLYSACCHARIDE IRON COMPLEX 150 MG CAPSULE PO ×2 (08:20→17:02)
[2024-07-24] MEDS: MULTIVIT/MIN/PREN/FOL AC/IRON TABLET 1 TAB PO (08:20)
[2024-07-24] MEDS: DOCUSATE SODIUM 100 MG CAPSULE PO ×2 (08:20→17:02)
--- NOTE | 2024-07-24 09:15 | PC.NURSE ---
Consulted with patient to assess needs related to . Mother explains that overnight orders were provided from the sales assistant to supplement after due to not producing adequate output. Mother states that bottles were introduced overnight but she would like to pump and feed breastmilk for supplementation, if possible. Mother will bring her breast pump from home and begin pumping for supplementation. has had output and this RN will confirm with Primary RN if the supplementation order will continue and discuss this with mother. On evaluation, mother does have a blister on her right nipple and states that this may be due to a poor latch overnight when her and infant were sleepy. This RN observed infant latch to the right breast in cross cradle position. Mother was able to latch infant without pain or difficulty. Infants bottom lip was turned in but this RN was able to correct latch. Multiple swallows were noted. Infant remains nursing upon exiting room. Reported to the Primary RN.
[2024-07-24] MEDS: LIDOCAINE 5% PATCH 1 PATCH TRANSDERM (11:02)
--- NOTE | 2024-07-24 11:45 | PC.NURSE ---
Mother has her own Spectra Breast pump she would like to use and has her own instructions, instructions given on cleaning, care, that there should be no pain, pumping schedule for milk production, collection, and storage of human milk. Patient was assessed for correct placement, flange size, to pump for comfort and nipple stretching/stimulation for adequate milk production every 3 hours (8 times in 24 hours) 1-2 times at night. Parents are encouraged to record the pumping schedule on the feeding sheet.?Baby has orders for supplementation after each . Mother voiced understanding of the education shared along with mom/baby guide and the pump measurement, flange fit handout for additional resource information.
[2024-07-24] MEDS: HYDROcodone/acetaminophen (*CRX) 5-325 MG TABLET 1 TAB PO ×2 (17:03→23:00)
--- NOTE | 2024-07-24 18:00 | PC.NURSE ---
Patient transferred to post room #111 via wheelchair. Support person present. Oriented to unit, room, information board, rooming in, admission packet and security measures. Patient verbalizes understanding.
[2024-07-24 19:00] VITALS: BP 124/70; PULSE 72; RESP 18; TEMP 36.8; O2SAT 100
[2024-07-25] MEDS: HYDROcodone/acetaminophen (*CRX) 5-325 MG TABLET 1 TAB PO ×2 (04:50→11:07)
[2024-07-25] MEDS: ACETAMINOPHEN 325 MG TABLET 650 MG PO ×2 (04:50→11:06)
[2024-07-25] MEDS: IBUPROFEN 600 MG TABLET PO ×2 (04:50→11:07)
[2024-07-25] MEDS: SIMETHICONE 80 MG TAB.CHEW PO (07:22)
[2024-07-25] MEDS: POLYSACCHARIDE IRON COMPLEX 150 MG CAPSULE PO (07:22)
[2024-07-25] MEDS: MULTIVIT/MIN/PREN/FOL AC/IRON TABLET 1 TAB PO (07:22)
[2024-07-25] MEDS: DOCUSATE SODIUM 100 MG CAPSULE PO (07:22)
[2024-07-25 07:31] VITALS: BP 118/68; PULSE 74; RESP 17; TEMP 36.9; O2SAT 100
[2024-07-25 07:33] VITALS: PULSE 64; O2SAT 99
[2024-07-25 07:34] VITALS: BP 118/68; PULSE 65
--- NOTE | 2024-07-25 08:00 | PC.NURSE ---
Consulted with mother concerning needs and she shared her ability to independently latch infant. Mom's right nipple is blistered but it has scabbed over and is not open or bleeding. Mother is feeding appropriately for growth of and understands stimulating to eat if needed. There is a doctor's order for supplementation after each . Mom is pumping with her Spectra pump and using formula mixed with breast milk to make 20 ml of supplementation. Infant has had appropriate feedings in the last 24 hours meets the outcomes for weight, output, blood sugar and jaundice at this time. Reinforced understanding of milk production, transition of milk, signs of adequate intake, transition of stool, prevention/relief of engorgement, plugged ducts, mastitis, responsive watching for feeding cues, the different methods of stimulating infant to breastfeed 1-3 hours after the start of the last feeding, community resources, and when to call a provider using the resource of the feeding sheet along with the mom and baby guide. Mother voiced understanding of the information shared, is confident to continue effectively her infant at home, when to call for assistance, denies any additional assistance or education at this time. Reported to the Primary RN.
--- NOTE | 2024-07-25 10:05 | P.PNOB_ITS ---
OB - PN: Subj Subjective Date/time seen: 07/25/24 0950 Interval history: Post Day 3 from repeat LTCS. Doing well. Urinating without difficulty. Denies passing any large clots. Denies dizziness with ambulating. Tolerating po food and fluids. Bonding with infant. Patient comments: pain well controlled Raymond baby status: nursing well feeding status: breast and bottle feeding OB - PN: Obj Data Labs 07/23/24 04:24 OB - PN A/P Assessment and Plan (1) delivery delivered: Code(s): O82 - Encounter for delivery without indication Status: Acute (2) Post-operative pain: Code(s): G89.18 - Other acute postprocedural pain Status: Acute Plan day: 3 Plan: discharge home Comments: Discussed wound care in length. Recommend dry pad to incision to wick away moisture. Keep clean and dry. RN to place Mepilex dressing prior to discharge. Time Spent With Patient Time: Total time spent is greater than 50% in coordination of care (as documented) at patient's floor/unit and/or counseling patient: Review of Systems Review of Systems: All systems reviewed & are unremarkable except as noted in HPI and below Exam Const: General: cooperative, no acute distress and awake Orientation/consciousness: patient oriented x3 Limitations: no limitations Resp: Effort & Inspection: normal respiratory effort and able to speak in complete sentences Auscultation: clear to auscultation bilaterally Cardio: Rate: regular rate Peripheral pulses: Peripheral pulses 2+ throug hout GI: Inspection: normal to inspection Auscultation: normal bowel sounds : General: Yes bladder normal to palpation Speculum Exam - Vagina: vaginal bleeding Bimanual exam- vagina & uterus: bladder normal to palpation OB/external & speculum: vaginal bleeding Other: Fundus firm Skin: General skin exam: normal color Other: Incision approximated. Skin glue peeling. Entire area shiny/wet appearing. Below the incision to the right side there is a 4 cm area with some flat, round, pink skin. Neuro: General: patient oriented x3 Cognition (Neuro): normal cognition Speech: normal speech Extrem: General: normal to inspection Psych: Appearance: grossly normal Mental Status: mental status grossly normal Speech and movement: Normal speech and movement present Affect: normal affect Attitude: cooperative Thought process: Normal thought process present
--- NOTE | 2024-07-25 10:25 | PC.NURSE ---
Order received to apply dressing to incision area. Area cleaned with Betadine soap and allowed to dry. Mepilex dressing applied.
--- NOTE | 2024-07-25 10:45 | PC.NURSE ---
Patient called out for a latch check before discharge. Mom had baby latched to the right breast in football hold. She did say baby's bottom lip was rolled in and that dad pulled it out at the beginning of the feed. Baby was a bit shallow and mom was educated on making a 'breast sandwich' to see if it helped, or to compress the breast tissue and feed it into baby's mouth as he suckles. She complains that the initial latch on is painful, but that it subsides as baby nurses. We discussed hard palate and soft palate and that as baby grows, he will be able to draw more of the nipple to the soft palate and reduce rubbing on the nipple. Mom knows that rotating positions may assist with reduced rubbing in the same areas of the nipple. Mom is pumping on the left breast while feeding on the right. She then supplements with the pumped milk (and formula if needed). Mom is comfortable with the feeding plan in place and will continue with this plan until she follows up with her lead pressman. Baby has frequent swallowing and is a little sleepy but suckles consistently with encouragement. Mom has the Services phone number and will call with any further needs. Reported to primary RN.
[2024-07-27 11:27] VITALS: BP 126/76; PULSE 71; RESP 18; TEMP 36.8; O2SAT 100
== END 2024-07-25 12:10 | disposition home or self-care (01) | DRG 788 ==
LOC: ANHLDR 05:29 → ANHOB2 10:47 → ANHOBPP 07-24 18:29
PROVIDERS: Admitting Provider Obstetrics & Gynecology; Visit Provider Obstetrics & Gynecology
PROC: 10D00Z1 Extraction of Products of Conception, Low, Open Approach (ICD-10-PCS; CPT 59514; principal; 2024-07-22 07:30)
DX: O34.211 Maternal care for low transverse scar from previous cesarean delivery (principal); Z37.0 Single live birth; Z3A.39 39 weeks gestation of pregnancy; O69.81X0 Labor and delivery complicated by cord around neck, without compression, not applicable or unspecified
CPT/HCPCS: 36415; 85025; A9270; J0690; J1885; J2270; J2274; J2371; J2405; J2590; J7120

== ENCOUNTER 2024-08-01 10:54 | Observation (INO) | payer OTHER, SELFPAY ==
--- NOTE | ~2024-08-01 | CT_ITS ---
EXAMINATION: CT abdomen pelvis w con DATE: 08/01/2024 18:14 INDICATION: section infection. TECHNIQUE: Computed tomography (CT) of the abdomen and pelvis was performed with 100 mL Omnipaque 350 intravenous contrast. Automated exposure control and iterative reconstruction technique were employe d. The dose-length product was 1050.77 mGy-cm. COMPARISON: CT abdomen and pelvis 10/01/16 FINDINGS: The visualized portions of the lung bases demonstrate minimal atelectasis. A calcified righ t lung nodule is consistent with old granulomatous disease. No pleural effusion. The heart size is no rmal. No pericardial effusion. The liver is normal. There are changes of cholecystectomy. Calcificati ons in the spleen are consistent with old granulomatous disease. There is mild splenomegaly. The panc reas, adrenal glands, and kidneys are normal. There are no dilated loops of bowel. The appendix is no rmal. There are no pathologically enlarged lymph nodes. There is no free intraperitoneal fluid. There are changes of recent section. There is a subcutaneous fluid collection in the incision eder suring 2.4 x 0.8 x 13.3 cm. There is thickening of the endometrial complex to 3.4 cm. There is a 2.1 cm subserosal fibroid. There is internal fixation of left femur. There is mild thoracic and lumbar sp ondylosis. IMPRESSION: 1. 2.4 x 0.8 x 13.3 cm subcutaneous fluid collection in the section incision, consistent wit h abscess versus subacute hematoma. 2. Markedly thickened endometrial complex suspicious for retained products of conception. Reviewed, dictated and finalized at location A. [employer] IMPRESSION: 1. 2.4 x 0.8 x 13.3 cm subcutaneous fluid collection in the section in cision, consistent with abscess versus subacute hematoma. 2. Markedly thickened endometrial complex suspicious for retained products of c onception.
[2024-08-01 11:02] VITALS: BP 131/71; PULSE 101; RESP 16; TEMP 37.1; O2SAT 98
[2024-08-01 14:58] LABS: Basophils Absolute Auto 0.1 K/mm3 (0.0-0.1); Basophils Percent Auto 0.3 % (0.2-1.2); Eosinophils Absolute Auto 0.1 K/mm3 (0-0.3); Eosinophils Percent Auto 0.9 % (0-4.4); Hematocrit 39.9 % (37.0-47.0); Hemoglobin 13.2 g/dL (12.0-15.0); Immature Granulocyte Absolute 0.07 K/mm3 (0.00-0.031); Immature Granulocyte Percent A 0.5 % (0-0.5); Lymphocytes Absolute Auto 1.34 K/mm3 (0.9-3.2); Lymphocytes Percent Auto 9.3 % (18.3-44.2); Mean Corpuscular HGB Conc 33.1 g/dl (32-36); Mean Corpuscular Hemoglobin 27.7 pg (26-34); Mean Corpuscular Volume 83.6 fl (80-100); Mean Platelet Volume 8.9 fl (7.4-10.4); Monocytes Absolute Auto 0.7 K/mm3 (0.1-0.6); Monocytes Percent Auto 5.1 % (2.6-8.5); Neutrophils Absolute Auto 12.1 K/mm3 (1.3-6.7); Neutrophils Percent Auto 83.9 % (45.5-73.1); Platelet Count Result 305 k/mm3 (150-375); Red Blood Count 4.77 M/mm3 (4.2-5.4); Red Cell Distribution Width 13.3 % (11.5-14.5); White Blood Count 14.4 K/mm3 (4.5-10.0)
[2024-08-01 15:08] LABS: Alanine Aminotransferase 35 U/L (6-35); Albumin Level 4.1 g/dL (3.5-5.1); Alkaline Phosphatase 139 U/L (38-126); Anion Gap 8 mmol/L (4-12); Aspartate Amino Transferase 35 U/L (14-36); Bilirubin,Total 0.6 mg/dL (0.2-1.3); Blood Urea Nitrogen 12 mg/dL (7-17); Calcium 9.3 mg/dL (8.4-10.2); Carbon Dioxide 22 mmol/L (22-30); Chloride 103 mmol/L (98-107); Estimated CRCL calculation 137 ml/min; Estimated Glomerular Filt Rate > 60; Glucose 113 mg/dL (65-110); Potassium 4.2 mmol/L (3.4-5.0); Sodium 133 mmol/L (137-145)
[2024-08-01 16:46] VITALS: BP 102/60; PULSE 105; RESP 18; TEMP 36.9; O2SAT 96
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
[2024-08-01] MEDS: SODIUM CHLORIDE 0.9% IV 1,000 ML 999 ML IV CONT (18:35)
[2024-08-01] MEDS: KETOROLAC 15 MG/ML VIAL (*BKC) IV PUSH (18:36)
[2024-08-01] MEDS: MORPHINE SULFATE (*CRX) 2 MG/ML INJ IV PUSH ×2 (18:36→20:39)
[2024-08-01] MEDS: PIPERACILLIN/TAZ 4.5G/NS 100ML 4.5 GM/100 ML BAG IVPB (19:45)
[2024-08-01] MEDS: VANCOMYCIN 1,250 MG/NS 250 ML 1,250 MG/250 ML BAG 166.67 MG IVPB ×2 (20:00→21:42)
[2024-08-01 20:04] LABS: Lactic Acid Reflex 0.7 mmol/L (0.7-2.0)
--- NOTE | 2024-08-01 20:14 | PC.NURSE ---
new line established to the left forearm. Vancomycin is running on pump. 22 G to the L forearm is patent. Patient is comfortable at this time.
--- NOTE | 2024-08-01 20:33 | PC.NURSE ---
RN calling to give report at this time.
--- NOTE | 2024-08-01 20:33 | PC.NURSE ---
patient is requesting medications for pain at this time. RN will inform provider after report is given.
--- NOTE | 2024-08-01 21:04 | ADMGEN ---
This patient, Emily Wiley, was admitted to [facility] Room 322-02. Patient/family oriented to hospital policies and general routines including ID bracelet, bed and alarms, visiting hours, pain management, procedures, bathroom and other care routines, personal items, smoking policy, room service/diet, and visiting hours. Information on how to activate the Rapid Response Team has been discussed. Patient/Family are encouraged to report perceived risks to care and to ask questions if they do not understand what they are told or what they should do.
[2024-08-01 21:15] VITALS: BP 112/70; PULSE 91; RESP 22; TEMP 37.3; O2SAT 100; BMI 40.2
[2024-08-02] MEDS: diphenhydrAMINE HCl CAP 25 MG CAPSULE PO (00:04)
[2024-08-02] MEDS: IBUPROFEN 600 MG TABLET PO ×2 (00:04→09:28)
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
[2024-08-02 06:00] VITALS: BP 109/57; PULSE 64; RESP 20; TEMP 37.2; O2SAT 97
[2024-08-02] MEDS: AMPICILLIN SULB 3 GM/NS 100 ML 3 GM/100 ML VIAL IVPB ×2 (06:49→12:46)
[2024-08-02 08:27] VITALS: O2SAT 99
[2024-08-02 10:55] LABS: Basophils Absolute Auto 0.1 K/mm3 (0.0-0.1); Basophils Percent Auto 0.5 % (0.2-1.2); Eosinophils Absolute Auto 0.4 K/mm3 (0-0.3); Eosinophils Percent Auto 4.6 % (0-4.4); Hematocrit 34.3 % (37.0-47.0); Hemoglobin 11.3 g/dL (12.0-15.0); Immature Granulocyte Absolute 0.04 K/mm3 (0.00-0.031); Immature Granulocyte Percent A 0.4 % (0-0.5); Lymphocytes Percent Auto 17.7 % (18.3-44.2); Mean Corpuscular HGB Conc 32.9 g/dl (32-36); Mean Corpuscular Hemoglobin 27.6 pg (26-34); Mean Corpuscular Volume 83.9 fl (80-100); Mean Platelet Volume 9.2 fl (7.4-10.4); Monocytes Absolute Auto 0.5 K/mm3 (0.1-0.6); Monocytes Percent Auto 5.5 % (2.6-8.5); Neutrophils Absolute Auto 6.9 K/mm3 (1.3-6.7); Neutrophils Percent Auto 71.3 % (45.5-73.1); Platelet Count Result 244 k/mm3 (150-375); Red Blood Count 4.09 M/mm3 (4.2-5.4); Red Cell Distribution Width 13.4 % (11.5-14.5); White Blood Count 9.6 K/mm3 (4.5-10.0)
--- NOTE | 2024-08-02 12:05 | P.PNOB_ITS ---
RETAIL AND RESTAURANT ASSOCIATE - A/P Assessment and plan (1) Separation of wound with drainage, : Code(s): O90.0 - Disruption of delivery wound Status: Acute Assessment and Plan: Home on Augmentin. Keep wound dressed and follow up in the office tomorrow. Time Spent With Patient Time with patient: 15 - 25 minutes RETAIL AND [employer]AURANT ASSOCIATE- PN:Keeley Post-Op Subjective Date/time seen: 08/02/24 12:05 Interval history: No pain. No fever. WBC improved. RETAIL AND RESTAURANT ASSOCIATE - PN: Obj Data Vital Signs Vital Signs: Vital Signs - 24 hr 08/01/24 16:46 08/01/24 21:15 08/01/24 22:31 Temperature 36.9 C 37.3 C Pulse Rate 105 H 91 Respiratory Rate 18 22 H Blood Pressure 102/60 112/70 Pulse Oximetry 96 100 Oxygen Delivery Room Air Fraction of Inspired Oxygen 08/02/24 06:00 08/02/24 08:27 Temperature 37.2 C Pulse Rate 64 Respiratory Rate 20 Blood Pressure 109/57 L Pulse Oximetry 97 99 Oxygen Delivery Room Air Fraction of Inspired Oxygen 21 Intake/Output Intake/Output: Intake & Output 07/30/24 07/31/24 08/01/24 08/02/24 23:59 23:59 23:59 23:59 Intake Total 1600 1000 Balance 1600 1000 Meds/Results Medications: Active Medications Generic Name Dose Route Start Last Admin Trade Name Freq PRN Reason Stop Dose Admin Diphenhydramine HCl 25 mg 08/01/24 23:51 08/02/24 00:04 Diphenhydramine Hcl Cap 25 Mg Capsule PO 25 mg Q6H PRN Administration Itching Ampicillin Sodium/Sulbactam Sodium 3 gm in 100 mls @ 200 mls/hr 08/02/24 06:00 08/02/24 07:19 Unasyn 3 Gm/Ns 100 Ml IVPB Infused Q6HR RUBINA Infusion Ibuprofen 600 mg 08/01/24 23:52 08/02/24 09:28 Ibuprofen 600 Mg Tablet PO 600 mg Q6H PRN Administration Pain Rated 1-3 Ondansetron HCl 4 mg 08/01/24 19:43 Ondansetron Inj 4 Mg/2 Ml Vial IV PUSH Q4H PRN Nausea Oxycodone/Acetaminophen 1 tablet 08/01/24 23:51 Oxycodone/Acetaminophen (*Crx) 5-325 Mg Tablet PO Q6H PRN Pain Rated 7-10 Radiology Results: ITS Impressions Abdomen/Pelvis CT 08/01/24 19:53 IMPRESSION: 1. 2.4 x 0.8 x 13.3 cm subcutaneous fluid collection in the section incision, consistent with abscess versus subacute hematoma. 2. Markedly thickened endometrial complex suspicious for retained products of conception. Labs 08/02/24 10:35 08/01/24 14:49 Labs: Laboratory Results - last 24 hr 08/01/24 08/01/24 08/02/24 14:49 19:47 10:35 WBC 14.4 H 9.6 RBC 4.77 4.09 L Hgb 13.2 D 11.3 L Hct 39.9 34.3 L MCV 83.6 83.9 MCH 27.7 27.6 MCHC 33.1 32.9 RDW 13.3 13.4 Plt Count 305 D 244 MPV 8.9 9.2 Immature Gran % (Auto) 0.5 0.4 Neut % (Auto) 83.9 H 71.3 Lymph % (Auto) 9.3 L 17.7 L [place] % (Auto) 5.1 5.5 Eos % (Auto) 0.9 4.6 H Baso % (Auto) 0.3 0.5 Lymph # (Auto) 1.34 1.70 [place] # (Auto) 0.7 H 0.5 Eos # (Auto) 0.1 0.4 H Baso # (Auto) 0.1 0.1 Abs Immat Gran (auto) 0.07 H 0.04 H Absolute Neuts (auto) 12.1 H 6.9 H Absolute Nucleated RBC 0.000 0.000 Nucleated RBC % 0.0 0.0 Sodium 133 L Potassium 4.2 Chloride 103 Carbon Dioxide 22 Anion Gap 8 BUN 12 Creatinine 0.60 L Estim Creat Clear Calc 137 Estimated GFR > 60 Glucose 113 H Lactic Acid 0.7 Calcium 9.3 Total Bilirubin 0.6 AST 35 ALT 35 Alkaline Phosphatase 139 H Total Protein 7.0 Albumin 4.1
== END 2024-08-02 14:15 | disposition home or self-care (01) ==
LOC: ANHED 16:28 → ANH3MEDSUR 20:24
PROVIDERS: Student in an Organized Health Care Education/Training Program; Admitting Provider Obstetrics & Gynecology; Emergency Provider Emergency Medicine; Visit Provider Obstetrics & Gynecology
DX: O90.0 Disruption of cesarean delivery wound (principal); Z87.891 Personal history of nicotine dependence
CPT/HCPCS: 36415; 74177; 80053; 83605; 85025; 87040; 87070; 87075; 87205; 96361; 96365; 96366; 96367; 96375; 96376; 99285; A9270; G0378; J0295; J1885; J2270; J2543; J3370; J7030; Q9967

== ENCOUNTER 2024-10-04 16:14 | Emergency (ER) | payer OTHER, SELFPAY ==
[2024-10-04 16:26] VITALS: BP 117/57; PULSE 93; RESP 16; TEMP 37; O2SAT 100
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
[2024-10-04 16:39] LABS: BEDSIDEPREGUCG Negative (Negative); EDUAAPPEAR Clear; EDUABILI Negative (Negative); EDUABLOOD Negative (Negative); EDUACOLOR1 Yellow; EDUAGLUCOSE Negative (Negative); EDUAKETONE Negative (Negative); EDUALEUKO Negative (Negative); EDUANITRATE Negative (Negative); EDUAPH 5.5; EDUAPROTEIN Trace (Negative); EDUASPGRAVITY 1.025; EDUAUROBILI 0.2
== END 2024-10-04 16:52 | disposition short-term general hospital (02) ==
PROVIDERS: Emergency Provider Nurse Practitioner Family
DX: R10.31 Right lower quadrant pain (principal); E66.01 Morbid (severe) obesity due to excess calories; F41.9 Anxiety disorder, unspecified; N80.9 Endometriosis, unspecified; Z90.49 Acquired absence of other specified parts of digestive tract
CPT/HCPCS: 81003; 81025; 87086; 99213; G0463

== ENCOUNTER 2024-10-04 17:07 | Emergency (ER) | payer OTHER, SELFPAY ==
--- NOTE | ~2024-10-04 | CT_ITS ---
CLINICAL INDICATION: Diffuse abdominal pain COMPARISON: 08/01/2024. TECHNIQUE: Multiple contiguous axial images of the abdomen and pelvis were performed following the ad ministration of with 100 mL Omnipaque-350 intravenous contrast The dose-length product (DLP) was 1045.08 mGy-cm. Automated exposure control and iterative reconstruction technique were employed. FINDINGS/OBSERVATIONS: Visualized lower thorax: Calcified granuloma within the right middle lobe, unchanged from prior The remainder of the bilateral lung bases are clear. The heart is of normal size, without pericardial effusion. Liver: The liver enhances homogeneously and is enlarged, measuring 21 cm in longitudinal dimension Gallbladder and biliary system: The gallbladder is surgically absent. Pancreas: The pancreas enhances homogeneously without ductal dilatation. Spleen: The spleen enhances homogeneously and is not enlarged measuring 8 cm in longitudinal dimension. Kidneys: The bilateral kidneys enhance symmetrically without hydronephrosis or renal calculi. Adrenal glands: Unremarkable. Gastrointestinal tract: Mural thickening and edema is identified throughout the colon with surrounding inflammatory change, f indings suggesting a diffuse pancolitis. Appendix: The air-filled appendix is of normal caliber (axial series, images 121 through 133). Vasculature: Unremarkable. Lymph nodes: No pathologically enlarged or morphologically suspicious lymph nodes within the retroperitoneum or at the root of the mesentery. Pelvic structures: The bladder is decompressed, and otherwise unremarkable. The uterus is anteverted and retroflexed. Trace free fluid within the pelvis, likely physiologic in a patient of this age. Body wall and musculoskeletal: Small fat-containing umbilical hernia. No significant degenerative disease within the lower thoracic or lumbosacral spine. IMPRESSION: Findings suggesting a diffuse pancolitis, as detailed above. Reviewed, dictated and finalized at location A. INSPECTOR
[2024-10-04 17:14] VITALS: BP 131/73; PULSE 79; RESP 18; TEMP 36.1; O2SAT 97
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
[2024-10-04 17:55] LABS: BEDSIDEPREGUCG Negative (Negative)
[2024-10-04 17:57] LABS: Basophils Percent Auto 0.3 % (0.2-1.2); Eosinophils Absolute Auto 0.1 K/mm3 (0-0.3); Eosinophils Percent Auto 1.3 % (0-4.4); Hematocrit 40.7 % (37.0-47.0); Hemoglobin 13.2 g/dL (12.0-15.0); Immature Granulocyte Absolute 0.03 K/mm3 (0.00-0.031); Immature Granulocyte Percent A 0.3 % (0-0.5); Lymphocytes Absolute Auto 2.45 K/mm3 (0.9-3.2); Lymphocytes Percent Auto 23.9 % (18.3-44.2); Mean Corpuscular HGB Conc 32.4 g/dl (32-36); Mean Corpuscular Hemoglobin 26.6 pg (26-34); Mean Corpuscular Volume 82.1 fl (80-100); Mean Platelet Volume 8.9 fl (7.4-10.4); Monocytes Absolute Auto 0.6 K/mm3 (0.1-0.6); Monocytes Percent Auto 5.9 % (2.6-8.5); Neutrophils Percent Auto 68.3 % (45.5-73.1); Platelet Count Result 349 k/mm3 (150-375); Red Blood Count 4.96 M/mm3 (4.2-5.4); Red Cell Distribution Width 13.4 % (11.5-14.5); White Blood Count 10.2 K/mm3 (4.5-10.0)
[2024-10-04] MEDS: KETOROLAC 15 MG/ML VIAL (*BKC) IV PUSH ×2 (17:57→21:16)
[2024-10-04 17:58] LABS: Add Urine Microscopic? NO; Appearance Urine Clear (Clear); Bilirubin Urine Negative (Negative); Blood Urine Negative (Negative); Color Urine Yellow (Yellow); Glucose Urine UA Negative (Negative); Ketones Urine Negative (Negative); Leukocyte Esterase Ur Negative LEU/UL (Negative); Nitrate Urine Negative (Negative); Protein Urine Negative (Negative); Specific Grav Ur 1.023 (1.001-1.035); Urobilinogen Urine 0.2 mg/dL (<2.0)
[2024-10-04 18:08] LABS: Alanine Aminotransferase 72 U/L (6-35); Albumin Level 4.3 g/dL (3.5-5.1); Alkaline Phosphatase 65 U/L (38-126); Anion Gap 12 mmol/L (4-12); Aspartate Amino Transferase 42 U/L (14-36); Bilirubin,Total 0.3 mg/dL (0.2-1.3); Blood Urea Nitrogen 13 mg/dL (7-17); Calcium 9.4 mg/dL (8.4-10.2); Carbon Dioxide 22 mmol/L (22-30); Chloride 105 mmol/L (98-107); Estimated CRCL calculation 142 ml/min; Estimated Glomerular Filt Rate > 60; Glucose 92 mg/dL (65-110); Lipase 106 U/L (23-300); Potassium 3.9 mmol/L (3.4-5.0); Sodium 139 mmol/L (137-145)
[2024-10-04 20:55] LABS: Lactic Acid Reflex 0.6 mmol/L (0.7-2.0)
== END 2024-10-04 21:30 | disposition home or self-care (01) ==
PROVIDERS: Emergency Provider Physician Assistant
DX: K52.9 Noninfective gastroenteritis and colitis, unspecified (principal); L40.9 Psoriasis, unspecified; E66.01 Morbid (severe) obesity due to excess calories; Z68.41 Body mass index [BMI] 40.0-44.9, adult; Z87.891 Personal history of nicotine dependence; Z90.49 Acquired absence of other specified parts of digestive tract
CPT/HCPCS: 36415; 74177; 80053; 81003; 81025; 83605; 83690; 85025; 96374; 96376; 99284; J1885; Q9967